=== PATIENT | female | born 1955 | race Caucasian/White ===

== ENCOUNTER → 2020-12-25 08:13 | Outpatient (BNVA) | payer OTHER, SELFPAY | PROVIDERS: PCP Internal Medicine; Visit Provider Nurse Practitioner Gerontology ==

== ENCOUNTER 2020-12-29 07:28 | Outpatient (REF) | payer OTHER, SELFPAY ==
--- NOTE | ~2020-12-29 | MM_ITS ---
EXAMINATION: MM SCREENING DIGITAL BREAST TOMOSYNTHESIS, BILATERAL CLINICAL INFORMATION: Screening. Asymptomatic. The lifetime risk of breast cancer based on the Tyrer-Cuzick Model is 8%. COMPARISON: Mammography: 08/29/2019, 07/11/2018, 06/13/2017 TECHNIQUE: Digital breast tomosynthesis is performed in both the craniocaudal and mediolateral oblique views along with computer-aided detection (CAD). Synthesized 2D images are generated from the tomosynthesis. FINDINGS: The breasts are heterogeneously dense, which may obscure small masses (ACR BI-RADS breast composition Category c). Breast tissue composition borders on extremely dense. There is inhomogeneous parenchymal pattern without significant change. No developing density or interval mass or architectural abnormality. No abnormal calcifications. The axilla and skin contours are unremarkable. MM/MM tomosynthesis screening BI IMPRESSION: No mammographic evidence of malignancy. ASSESSMENT: BI-RADS 1: Negative RECOMMENDATION: Routine annual mammography screening. This patient's information was entered into a reminder system with a target due date for their next mammogram.
[2020-12-29 09:43] LABS: Free T4 (Free Thyroxine) 1.26 ng/dL (0.71-1.85); Thyroid Stimulating Hormone 1.76 uIU/mL (0.32-4.0)
== END 2020-12-29 07:29 | disposition home or self-care (01) ==
LOC: HO.MAMMO 07:28
PROVIDERS: Absent Provider Nurse Practitioner Gerontology; PCP Internal Medicine; Visit Provider Internal Medicine
DX: Z12.31 Encounter for screening mammogram for malignant neoplasm of breast (principal); E03.9 Hypothyroidism, unspecified
CPT/HCPCS: 36415; 77063; 77067; 84439; 84443

== ENCOUNTER 2021-02-22 07:37 | Outpatient (REF) | payer OTHER, SELFPAY ==
[2021-02-22 08:04] LABS: MANUAL DIFF FLAG NO
[2021-02-22 08:08] LABS: Basophils Percent Auto 0.6 % (0-2); Eosinophils Absolute Auto 0.1 X10*3/uL (0.0-0.4); Eosinophils Percent Auto 1.9 % (0-4); Hematocrit 40.2 % (37-47); Hemoglobin 13.4 g/dl (12.0-16.0); Imm Gran Abs Auto 0.01 X10*3/uL (0.00-0.03); Imm Gran Pct Auto 0.2 % (0.0-0.4); Lymphocytes Absolute Auto 1.7 X10*3/uL (1.2-4.9); Lymphocytes Percent Auto 36.3 % (20-40); Mean Corpuscular HGB Conc 33.3 g/dl (31.0-35.0); Mean Corpuscular Hemoglobin 30.6 pg (27.0-33.0); Mean Corpuscular Volume 91.8 fL (80-98); Mean Platelet Volume 8.7 fL (9.4-12.3); Monocytes Absolute Auto 0.4 X10*3/uL (0.1-1.2); Monocytes Percent Auto 8.1 % (2-11); Neutrophils Absolute Auto 2.5 X10*3/uL (2.0-8.3); Neutrophils Percent Auto 52.9 % (45-73); Platelet Count 204 X10*3/uL (160-400); Red Blood Count 4.38 X10*6/uL (4.20-5.50); Red Cell Distribution Width 12.8 % (11.0-16.0); White Blood Count 4.7 X10*3/uL (4.8-10.8)
[2021-02-22 08:37] LABS: Alanine Aminotransferase 23 U/L (0-31); Albumin Level 4.2 g/dL (3.5-5.0); Alkaline Phosphatase 67 U/L (39-117); Anion Gap 10 (12-20); Aspartate Amino Transferase 21 U/L (5-31); Bilirubin Total 0.7 mg/dL (0.0-1.0); Blood Urea Nitrogen 10 mg/dL (9-16); Carbon Dioxide 26 mmol/L (22-29); Chloride 102 mmol/L (96-108); Cholesterol 218 mg/dL; Estimated Glomerular Filt Rate > 60; Glucose Fasting 98 mg/dL (60-99); HDL Cholesterol 79 mg/dL; LDL Cholesterol Calculated 121 mg/dl; Potassium 4.4 mmol/L (3.3-5.1); Sodium 134 mmol/L (135-145); Total Protein 6.6 g/dL (6.5-8.0); Triglycerides 94 mg/dL
[2021-02-22 08:52] LABS: Free T4 (Free Thyroxine) 1.33 ng/dL (0.71-1.85); Vitamin D 25-OH Total 35.9 ng/mL (>30)
[2021-02-22 10:03] LABS: Glucose Urine UA NEG (NEG); Leukocyte Esterase Urine NEG (NEG); Nitrite Urine NEG (NEG); Specific Gravity - Urine <= 1.005 (1.005-1.025); Urine Blood NEG (NEG); Urine Ketones NEG (NEG); Urine Protein NEG (NEG-TRACE)
[2021-02-22 10:07] LABS: Appearance Urine CLEAR; Color Urine YELLOW
== END 2021-02-22 07:38 | disposition home or self-care (01) ==
LOC: HO.LAB 07:37
PROVIDERS: PCP Internal Medicine; Visit Provider Internal Medicine
DX: E03.9 Hypothyroidism, unspecified (principal); I10 Essential (primary) hypertension; E78.00 Pure hypercholesterolemia, unspecified; E55.9 Vitamin D deficiency, unspecified
CPT/HCPCS: 36415; 80053; 80061; 81003; 82306; 84439; 84443; 85025

== ENCOUNTER 2021-08-24 08:31 | Outpatient (REF) | payer OTHER, SELFPAY ==
[2021-08-24 10:16] LABS: Alanine Aminotransferase 20 U/L (0-31); Albumin Level 4.3 g/dL (3.5-5.0); Alkaline Phosphatase 72 U/L (39-117); Anion Gap 11 (12-20); Aspartate Amino Transferase 19 U/L (5-31); Bilirubin Total 0.8 mg/dL (0.0-1.0); Blood Urea Nitrogen 14 mg/dL (9-16); Calcium 9.5 mg/dL (8.4-10.2); Carbon Dioxide 27 mmol/L (22-29); Chloride 104 mmol/L (96-108); Cholesterol 260 mg/dL; Estimated Glomerular Filt Rate > 60; Glucose Fasting 95 mg/dL (60-99); HDL Cholesterol 86 mg/dL; LDL Cholesterol Calculated 156 mg/dl; Potassium 4.5 mmol/L (3.3-5.1); Sodium 137 mmol/L (135-145); Triglycerides 92 mg/dL
== END 2021-08-24 08:32 | disposition home or self-care (01) ==
LOC: HO.LAB 08:31
PROVIDERS: PCP Internal Medicine; Visit Provider Internal Medicine
DX: E78.00 Pure hypercholesterolemia, unspecified (principal)
CPT/HCPCS: 36415; 80053; 80061

== ENCOUNTER 2021-12-16 14:59 | Outpatient (REF) | payer OTHER, SELFPAY ==
[2021-12-16 16:40] LABS: Free T4 (Free Thyroxine) 1.44 ng/dL (0.71-1.85); Thyroid Stimulating Hormone 0.22 uIU/mL (0.32-4.0)
== END 2021-12-16 15:00 | disposition home or self-care (01) ==
LOC: HO.LAB 14:59
PROVIDERS: PCP Internal Medicine; Visit Provider Nurse Practitioner Gerontology
DX: E03.9 Hypothyroidism, unspecified (principal)
CPT/HCPCS: 36415; 84439; 84443

== ENCOUNTER 2022-01-20 09:52 | Outpatient (REF) | payer OTHER, SELFPAY ==
--- NOTE | ~2022-01-20 | MM_ITS ---
EXAMINATION: MM SCREENING DIGITAL BREAST TOMOSYNTHESIS, BILATERAL CLINICAL INFORMATION: Screening. Asymptomatic. The lifetime risk of breast cancer based on the Tyrer-Cuzick Model is 10%. COMPARISON: Mammography: 12/29/2020, 08/29/2019, 07/11/2018, 06/13/2017 TECHNIQUE: Digital breast tomosynthesis is performed in both the craniocaudal and mediolateral oblique views along with computer-aided detection (CAD). Synthesized 2D images are generated from the tomosynthesis. FINDINGS: The breasts are heterogeneously dense, which may obscure small masses (ACR BI-RADS breast composition Category c). There are no significant masses, abnormal calcifications, or other abnormalities. There are scattered shifting fibroglandular parenchymal densities from year to year related to variation in positioning. No developing density or significant changes. The axilla are unremarkable. MM/MM tomosynthesis screening BI IMPRESSION: No mammographic evidence of malignancy. ASSESSMENT: BI-RADS 2: Benign RECOMMENDATION: Routine annual mammography screening. This patient's information was entered into a reminder system with a target due date for their next mammogram.
== END 2022-01-20 09:53 | disposition home or self-care (01) ==
LOC: HO.MAMMO 09:52
PROVIDERS: PCP Internal Medicine; Visit Provider Internal Medicine
DX: Z12.31 Encounter for screening mammogram for malignant neoplasm of breast (principal)
CPT/HCPCS: 77063; 77067

== ENCOUNTER 2022-03-03 07:55 | Outpatient (REF) | payer OTHER, SELFPAY ==
[2022-03-03 11:07] LABS: Free T4 (Free Thyroxine) 1.17 ng/dL (0.71-1.85); Thyroid Stimulating Hormone 1.92 uIU/mL (0.32-4.0)
== END 2022-03-03 07:56 | disposition home or self-care (01) ==
LOC: HO.WFDLDS 07:55
PROVIDERS: PCP Internal Medicine; Visit Provider Internal Medicine Endocrinology, Diabetes & Metabolism
DX: E03.9 Hypothyroidism, unspecified (principal)
CPT/HCPCS: 36415; 84439; 84443

== ENCOUNTER 2022-04-20 08:18 | Outpatient (REF) | payer OTHER, SELFPAY ==
[2022-04-20 11:09] LABS: MANUAL DIFF FLAG NO
[2022-04-20 11:15] LABS: Appearance Urine Clear; Color Urine Yellow; Glucose Urine UA Negative (Negative); Leukocyte Esterase Urine Trace (Negative); Nitrite Urine Negative (Negative); Urine Blood Negative (Negative); Urine Ketones Negative (Negative); Urine Protein Negative (Neg-Trace)
[2022-04-20 11:16] LABS: UMIC TRIGGER UACC YES
[2022-04-20 11:17] LABS: Basophils Percent Auto 0.6 % (0-2); Eosinophils Absolute Auto 0.1 X10*3/uL (0.0-0.4); Eosinophils Percent Auto 0.8 % (0-4); Hematocrit 42.5 % (37.0-47.0); Hemoglobin 13.8 g/dl (12.0-16.0); Imm Gran Abs Auto 0.02 X10*3/uL (0.00-0.03); Imm Gran Pct Auto 0.3 % (0.0-0.4); Lymphocytes Absolute Auto 1.6 X10*3/uL (1.2-4.9); Lymphocytes Percent Auto 25.5 % (20-40); Mean Corpuscular HGB Conc 32.5 g/dl (31.0-35.0); Mean Corpuscular Hemoglobin 29.7 pg (27.0-33.0); Mean Corpuscular Volume 91.4 fL (80.0-98.0); Mean Platelet Volume 9.5 fL (9.4-12.3); Monocytes Absolute Auto 0.5 X10*3/uL (0.1-1.2); Monocytes Percent Auto 7.7 % (2-11); Neutrophils Percent Auto 65.1 % (45-73); Platelet Count 231 X10*3/uL (160-400); Red Blood Count 4.65 X10*6/uL (4.20-5.50); Red Cell Distribution Width 13.1 % (11.0-16.0); White Blood Count 6.2 X10*3/uL (4.8-10.8)
[2022-04-20 11:24] LABS: Bacteria Urine None Seen (None Seen); Hyaline Casts Urine 0-2 /LPF (0-2); RBC Urine 0-2 /HPF (0-2); Squamous Epithelial Cell Urine 0-2 /HPF (0-2); WBC Urine 0-5 /HPF (0-5)
[2022-04-20 11:40] LABS: Alanine Aminotransferase 15 U/L (0-31); Albumin Level 4.4 g/dL (3.5-5.0); Alkaline Phosphatase 69 U/L (39-117); Anion Gap 15 (12-20); Aspartate Amino Transferase 18 U/L (5-31); Bilirubin Total 0.6 mg/dL (0.0-1.0); Blood Urea Nitrogen 19 mg/dL (9-16); Calcium 9.3 mg/dL (8.4-10.2); Carbon Dioxide 24 mmol/L (22-29); Chloride 100 mmol/L (96-108); Cholesterol 241 mg/dL; Estimated Glomerular Filt Rate > 60; Glucose Fasting 79 mg/dL (60-99); HDL Cholesterol 91 mg/dL; LDL Cholesterol Calculated 134 mg/dl; Potassium 4.3 mmol/L (3.3-5.1); Sodium 135 mmol/L (135-145); Total Protein 6.8 g/dL (6.5-8.0); Triglycerides 84 mg/dL
[2022-04-20 12:01] LABS: Free T4 (Free Thyroxine) 1.27 ng/dL (0.71-1.85); Thyroid Stimulating Hormone 2.21 uIU/mL (0.32-4.0); Vitamin D 25-OH Total 35.3 ng/mL (>30)
== END 2022-04-20 08:19 | disposition home or self-care (01) ==
LOC: HO.WFDLDS 08:18
PROVIDERS: Visit Provider Internal Medicine
DX: Z00.00 Encounter for general adult medical examination without abnormal findings (principal); E03.9 Hypothyroidism, unspecified; E55.9 Vitamin D deficiency, unspecified; E78.00 Pure hypercholesterolemia, unspecified
CPT/HCPCS: 36415; 80053; 80061; 81001; 82306; 84439; 84443; 85025

== ENCOUNTER 2022-09-29 08:01 | Outpatient (REF) | payer OTHER, SELFPAY ==
--- NOTE | ~2022-09-29 | MM_ITS ---
EXAMINATION: BONE DENSITOMETRY CLINICAL INDICATION: Menopause. COMPARISON: Previous BD dated 12/18/2018 and baseline BD dated 11/20/2009. TECHNIQUE: Using a [employer] DXA System (software version: 13.1) manufactured by [employer], dual-energy x-ray absorptiometry was performed of the lumbar spine and left hip. The images are of good technical quality. Summary results are attached. FINDINGS: AP SPINE L1-L4: Current: BMD 0.970 g/cm2, Z-score 0.1, T-score -1.7, osteopenia, 12.1% decrease from previous, 30.6% decrease from baseline (<5% change is not significant). Prior: BMD 1.104 g/cm2. Baseline: BMD 1.397 g/cm2. LEFT FEMUR, NECK: Current: BMD 0.694 g/cm2, Z-score -0.8, T-score -2.5, osteoporosis. Prior: BMD 0.751 g/cm2. Baseline: BMD 0.937 g/cm2. LEFT FEMUR, TOTAL: Current: BMD 0.756 g/cm2, Z-score -0.5, T-score -2.0, osteopenia, 5.5% decrease from previous, 26.9% decrease from baseline (<5% change is not significant). Prior: BMD 0.800 g/cm2. Baseline: BMD 1.034 g/cm2. IDENTIFIED RISK FACTORS: Menopause, hyperthyroid, secondary osteoporosis. HISTORY OF FRACTURE: None listed. MEDICATIONS: Calcium or multivitamin. Vitamin D. MM/XR DEXA axial skeleton IMPRESSION: 1. DIAGNOSIS: Osteoporosis based on the lowest T-score value of -2.5 in the femoral neck applying World Health Organization criteria. 2. 10-YEAR FRACTURE RISK PREDICTION, FRAX: According to the guidelines, FRAX calculation should only be performed on patients in the osteopenia bone density category. Therefore, FRAX was not performed on this patient. 3. Treatment Recommendations: NOF guidelines recommend consideration for treatment in postmenopausal women and men age 50 and older presenting with the following: -A hip or vertebral (clinical or morphometric) fracture. -T-score less than or equal to -2.5 at the femoral neck or spine after appropriate evaluation to exclude secondary causes. -Low bone mass at the hip or spine and a 10-year fracture probability by FRAX of greater than or equal to 3% for hip fracture or greater than or equal to 20% for major osteoporotic fracture based on the [place] adapted WHO algorithm. 4. Other Recommendations: All treatment decisions require clinical judgment and consideration of individual patient factors, including patient preferences, comorbidities, previous drug use, risk factors not captured in the FRAX model (e.g. frailty, falls, vitamin D deficiency, increased bone turnover, interval significant decline in bone density) and possible under or overestimation of fracture risk by FRAX. Additional medical evaluation for secondary cause of low bone mineral density may be appropriate. FUTURE SCAN RECOMMENDATION: People with diagnosed cases of osteoporosis or at high risk for fracture should have regular bone mineral density tests. For patients eligible for Medicare, routine testing is allowed once every 2 years. The testing frequency can be increased to one year for patients who have rapidly progressing disease, those who are receiving or discontinuing medical therapy to restore bone mass, or have additional risk factors.
== END 2022-09-29 08:02 | disposition home or self-care (01) ==
LOC: HO.MAMMO 08:01
PROVIDERS: PCP Internal Medicine; Visit Provider Internal Medicine
DX: Z13.820 Encounter for screening for osteoporosis (principal); M85.80 Other specified disorders of bone density and structure, unspecified site; Z78.0 Asymptomatic menopausal state
CPT/HCPCS: 77080

== ENCOUNTER 2022-10-17 07:17 | Outpatient (REF) | payer OTHER, SELFPAY ==
[2022-10-17 11:24] LABS: MANUAL DIFF FLAG NO
[2022-10-17 11:49] LABS: Appearance Urine Clear; Color Urine Yellow; Glucose Urine UA Negative (Negative); Leukocyte Esterase Urine Small (1+) (Negative); Nitrite Urine Negative (Negative); PH 5.5 (5.0-9.0); UMIC TRIGGER UACC YES; Urine Blood Negative (Negative); Urine Ketones Negative (Negative); Urine Protein Negative (Neg-Trace)
[2022-10-17 11:52] LABS: Basophils Percent Auto 0.8 % (0-2); Eosinophils Absolute Auto 0.1 X10*3/uL (0.0-0.4); Eosinophils Percent Auto 2.6 % (0-4); Hematocrit 40.8 % (37.0-47.0); Hemoglobin 13.4 g/dl (12.0-16.0); Imm Gran Abs Auto 0.01 X10*3/uL (0.00-0.03); Imm Gran Pct Auto 0.2 % (0.0-0.4); Lymphocytes Absolute Auto 1.6 X10*3/uL (1.2-4.9); Lymphocytes Percent Auto 32.2 % (20-40); Mean Corpuscular HGB Conc 32.8 g/dl (31.0-35.0); Mean Corpuscular Hemoglobin 30.1 pg (27.0-33.0); Mean Corpuscular Volume 91.7 fL (80.0-98.0); Monocytes Absolute Auto 0.5 X10*3/uL (0.1-1.2); Neutrophils Absolute Auto 2.8 x10*3/uL (2.0-8.3); Neutrophils Percent Auto 55.2 % (45-73); Platelet Count 209 X10*3/uL (160-400); Red Blood Count 4.45 X10*6/uL (4.20-5.50); White Blood Count 5.1 X10*3/uL (4.8-10.8)
[2022-10-17 12:06] LABS: Bacteria Urine None Seen (None Seen); Hyaline Casts Urine 0-2 /LPF (0-2); RBC Urine 0-2 /HPF (0-2); Squamous Epithelial Cell Urine 0-2 /HPF (0-2); UACC Culture Trigger YES; WBC Urine 0-5 /HPF (0-5)
[2022-10-17 12:30] LABS: Alanine Aminotransferase 14 U/L (0-31); Alkaline Phosphatase 64 U/L (39-117); Anion Gap 9 (12-20); Aspartate Amino Transferase 16 U/L (5-31); Bilirubin Total 0.8 mg/dL (0.0-1.0); Blood Urea Nitrogen 15 mg/dL (9-16); Calcium 8.9 mg/dL (8.4-10.2); Carbon Dioxide 28 mmol/L (22-29); Chloride 104 mmol/L (96-108); Cholesterol 237 mg/dL; Estimated Glomerular Filt Rate > 60; Glucose Fasting 88 mg/dL (60-99); HDL Cholesterol 80 mg/dL; LDL Cholesterol Calculated 143 mg/dl; Sodium 137 mmol/L (135-145); Total Protein 6.2 g/dL (6.5-8.0); Triglycerides 74 mg/dL
[2022-10-17 12:32] LABS: Thyroid Stimulating Hormone 7.89 uIU/mL (0.32-4.0); Vitamin D 25-OH Total 33.7 ng/mL (>30)
== END 2022-10-17 07:18 | disposition home or self-care (01) ==
LOC: HO.WFDLDS 07:17
PROVIDERS: Visit Provider Internal Medicine
DX: E78.00 Pure hypercholesterolemia, unspecified (principal); E55.9 Vitamin D deficiency, unspecified; E03.9 Hypothyroidism, unspecified; I10 Essential (primary) hypertension; R82.90 Unspecified abnormal findings in urine
CPT/HCPCS: 36415; 80053; 80061; 81001; 82306; 84439; 84443; 85025; 87086

== ENCOUNTER → 2022-11-23 15:48 | Outpatient (BNVA) | payer OTHER, SELFPAY | PROVIDERS: PCP Internal Medicine; Visit Provider Internal Medicine Endocrinology, Diabetes & Metabolism ==

== ENCOUNTER 2023-02-10 08:03 | Outpatient (REF) | payer OTHER, SELFPAY ==
--- NOTE | ~2023-02-10 | MM_ITS ---
EXAMINATION: MM SCREENING DIGITAL BREAST TOMOSYNTHESIS, BILATERAL CLINICAL INFORMATION: Screening. Asymptomatic. The lifetime risk of breast cancer based on the Tyrer-Cuzick Model is 9.1%. COMPARISON: Mammography: This study is compared with prior exams dating back to 2018. TECHNIQUE: Digital breast tomosynthesis is performed in both the craniocaudal and mediolateral oblique views along with computer-aided detection (CAD). Synthesized 2D images are generated from the tomosynthesis. FINDINGS: The breasts are heterogeneously dense, which may obscure small masses (ACR BI-RADS breast composition Category c). There are no significant masses, abnormal calcifications, or other abnormalities. MM/MM tomosynthesis screening BI IMPRESSION: No mammographic evidence of malignancy. ASSESSMENT: BI-RADS BI-RADS 1 - Negative RECOMMENDATION: Routine annual mammography screening. 1 year F/U This examination should not preclude the clinical evaluation of a suspicious palpable abnormality. This patient's information was entered into a reminder system with a target due date for their next mammogram.
== END 2023-02-10 08:04 | disposition home or self-care (01) ==
LOC: HO.MAMMO 08:03
PROVIDERS: PCP Internal Medicine; Visit Provider Internal Medicine
DX: Z12.31 Encounter for screening mammogram for malignant neoplasm of breast (principal)
CPT/HCPCS: 77063; 77067

== ENCOUNTER → 2023-02-10 08:15 | Outpatient (BNV) | payer OTHER, SELFPAY | PROVIDERS: PCP Internal Medicine; Visit Provider Radiology Diagnostic Radiology | DX: Z12.31 Encounter for screening mammogram for malignant neoplasm of breast (principal) | CPT/HCPCS: 77063; 77067 ==

== ENCOUNTER 2023-03-28 08:19 | Outpatient (REF) | payer OTHER, SELFPAY | END 2023-03-28 08:20 | disposition home or self-care (01) | LOC: HO.WFDLDS 08:19 | PROVIDERS: Visit Provider Internal Medicine Endocrinology, Diabetes & Metabolism | DX: M81.0 Age-related osteoporosis without current pathological fracture (principal) | CPT/HCPCS: 86335 ==

== ENCOUNTER 2023-03-30 07:50 | Outpatient (REF) | payer OTHER, SELFPAY ==
[2023-03-30 12:21] LABS: Phosphorus 3.3 mg/dL (2.7-4.5)
[2023-03-30 15:55] LABS: Creatinine, mg/dL 47.22
[2023-03-30 16:28] LABS: Creatinine, 24Hr Urine 0.9 G/Day (1.0-2.0); Total Volume 24 Hour Urine 1900 mL
[2023-04-01 22:29] LABS: Calcium, 24 Hr Urine 163 mg/24 h; Calcium/Creatinine Ratio 179 mg/g creat (30-275); Creatinine 24Hr Urine 0.91 g/24 h (0.50-2.15)
[2023-04-03 11:59] LABS: Prot Elec - Albumin 4.3 g/dL (3.8-4.8); Prot Elec - Alpha1 0.3 g/dL (0.2-0.3); Prot Elec - Alpha2 0.7 g/dL (0.5-0.9); Prot Elec - Beta 1 0.4 g/dL (0.4-0.6); Prot Elec - Beta 2 0.3 g/dL (0.2-0.5); Prot Elec - Gamma 0.9 g/dL (0.8-1.7)
== END 2023-03-30 07:51 | disposition home or self-care (01) ==
LOC: HO.WFDLDS 07:50
PROVIDERS: Visit Provider Internal Medicine Endocrinology, Diabetes & Metabolism
DX: M81.0 Age-related osteoporosis without current pathological fracture (principal)
CPT/HCPCS: 36415; 82340; 82570; 84100; 84165

== ENCOUNTER 2023-04-04 08:06 | Outpatient (AMB) | payer OTHER, SELFPAY ==
[2023-04-04 08:07] VITALS: BP 126/78; PULSE 80; BMI 22.9
--- NOTE | 2023-04-04 08:07 | MHC.OFFVIS ---
Intake Vital Signs 04/04/23 08:07 Height 5 ft 5 in Weight 137 lb 9.095 oz BMI 22.9 BP 126/78 Blood Pressure Location Lt brachial Position Sitting Pulse 80 Pulse Source Pulse Oximeter Intake Visit Reasons: Osteoporosis/ Confirmed Intake Note: Patient present for Osteoporosis follow up visit. [facility] Required: No Accompanied by: Self / Same As Patient Allergies sulfamethoxazole [From Bactrim] Allergy (Intermediate, Verified 04/04/23 08:14) Itching trimethoprim [From Bactrim] Allergy (Intermediate, Verified 04/04/23 08:14) Itching pitavastatin [Livalo] Allergy (Unknown, Verified 04/04/23 08:14) Unknown Sulfa (Sulfonamide Antibiotics) Allergy (Unknown, Verified 04/04/23 08:14) hives atorvastatin [Lipitor] Adverse Reaction (Unknown, Verified 04/04/23 08:14) myalgia,weakness ezetimibe [Zetia] Adverse Reaction (Unknown, Verified 04/04/23 08:14) myalgia, weakness rosuvastatin [Crestor] Adverse Reaction (Unknown, Verified 04/04/23 08:14) myalgia, weakness simvastatin Adverse Reaction (Unknown, Verified 04/04/23 08:14) myalgia, weakness Medication List - Last Reconciled 04/04/23 by Elie Hassan MD ascorbate calcium (vitamin C) 500 mg PO DAILY cholecalciferol (vitamin D3) 25 mcg PO DAILY coenzyme Q10 (CoQ-10) 100 mg PO DAILY levothyroxine 88 mcg PO DAILY multivitamin (Daily Multi-Vitamin tablet) 1 tab PO DAILY HPI HPI Comments History of Present Illness Details 67 YO Female is seen in consultation at the request of PCP for Osteoporosis. First diagnosed in this yr . Not Received treatment in the past No history of pathologic fracture or ONJ. Has several servings of dietary calcium per day in the form of cheese, yogurt . not Takes Calcium supplemen Takes 1000 IU of Vitamin D daily. Denies ever using PPI, anticoagulant, antiepileptic or glucocorticoid medication. 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 UTD on dental cleanings and sees dentist every 6 months. No planned upcoming dental work or extractions. DXA dated 09/29/22 :EXAMINATION: BONE DENSITOMETRY CLINICAL INDICATION: Menopause. COMPARISON: Previous BD dated 12/18/2018 and baseline BD dated 11/20/2009. TECHNIQUE: Using a [employer] DXA System (software version: 13.1) manufactured by [employer], dual-energy x-ray absorptiometry was performed of the lumbar spine and left hip. The images are of good technical quality. Summary results are attached. FINDINGS: AP SPINE L1-L4: Current: BMD 0.970 g/cm2, Z-score 0.1, T-score -1.7, osteopenia, 12.1% decrease from previous, 30.6% decrease from baseline (<5% change is not significant). Prior: BMD 1.104 g/cm2. Baseline: BMD 1.397 g/cm2. LEFT FEMUR, NECK: Current: BMD 0.694 g/cm2, Z-score -0.8, T-score -2.5, osteoporosis. Prior: BMD 0.751 g/cm2. Baseline: BMD 0.937 g/cm2. LEFT FEMUR, TOTAL: Current: BMD 0.756 g/cm2, Z-score -0.5, T-score -2.0, osteopenia, 5.5% decrease from previous, 26.9% decrease from baseline (<5% change is not significant). Prior: BMD 0.800 g/cm2. Baseline: BMD 1.034 g/cm2. IDENTIFIED RISK FACTORS: Menopause, hyperthyroid, secondary osteoporosis. HISTORY OF FRACTURE: None listed. MEDICATIONS: Calcium or multivitamin. Vitamin D. MM/XR DEXA axial skeleton IMPRESSION: 1. DIAGNOSIS: Osteoporosis based on the lowest T-score value of -2.5 in the femoral neck applying World Health Organization criteria.? Labs: Secondary workup was negative [facility] Medical History Acquired hypothyroidism Lumbar degenerative disc disease Osteoporosis Pure hypercholesterolemia Surgical History History of lumbar surgery Family History Father GI problem Mother Hypothyroid Maternal Aunt Breast cancer Maternal Grandmother No problems noted. Maternal Grandfather No problems noted. Paternal Grandmother No problems noted. Paternal Grandfather No problems noted. 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 Cognitive needs: No Hearing needs: No Vision needs: Yes (reading glasses) Physical Exam Vital Signs: Last Vital Signs Pulse 80 04/04/23 08:07 BP 126/78 04/04/23 08:07 BMI result Body Mass Index 22.9 Assessment & Plan Assessment & Plan (1) Osteoporosis: Code(s): M81.0 - Age-related osteoporosis without current pathological fracture Qualifiers: Osteoporosis type: age-related Presence of current pathological fracture: without current pathological fracture Qualified Code(s): M81.0 - Age-related osteoporosis without current pathological fracture Plan: This 67-year-old white female with a history of osteoporosis. Secondary workup was negative The plan is to continue calcium and vitamin-D supplementation. We talked about pharmacologic therapy with alendronate patient wants to hold off on pharmacologic therapy at this point. She returned to the care of her primary care provider will recheck a bone density either here at [facility] or at [facility] and if bone density significantly decreases, either her primary care provider can start the alendronate was should return back to endocrinology Coding Level of Care Code Est Pt Level 3 (60660) Diagnoses Age-related osteoporosis without current pathological fracture M81.0 Osteoporosis type: age-related Presence of current pathological fracture: without current pathological fracture
== END 2023-04-04 08:35 | disposition home or self-care (01) ==
PROVIDERS: PCP Internal Medicine; Visit Provider Internal Medicine Endocrinology, Diabetes & Metabolism
DX: M81.0 Age-related osteoporosis without current pathological fracture (principal)
CPT/HCPCS: 99213

== ENCOUNTER → 2023-04-04 08:06 | Outpatient (BNVA) | payer OTHER, SELFPAY | PROVIDERS: Visit Provider Internal Medicine Endocrinology, Diabetes & Metabolism ==

== ENCOUNTER 2023-04-28 07:32 | Outpatient (REF) | payer OTHER, SELFPAY ==
[2023-04-28 11:38] LABS: MANUAL DIFF FLAG NO
[2023-04-28 11:49] LABS: Appearance Urine Clear; Color Urine Yellow; Glucose Urine UA Negative (Negative); Leukocyte Esterase Urine Small (1+) (Negative); Nitrite Urine Negative (Negative); UMIC TRIGGER UACC YES; Urine Blood Negative (Negative); Urine Ketones Negative (Negative); Urine Protein Negative (Neg-Trace)
[2023-04-28 12:02] LABS: Bacteria Urine None Seen (None Seen); Hyaline Casts Urine 0-2 /LPF (0-2); RBC Urine 0-2 /HPF (0-2); UACC Culture Trigger YES
[2023-04-28 12:06] LABS: Basophils Absolute Auto 0.1 X10*3/uL (0.0-0.2); Basophils Percent Auto 0.8 % (0-2); Eosinophils Absolute Auto 0.1 X10*3/uL (0.0-0.4); Eosinophils Percent Auto 1.5 % (0-4); Hematocrit 41.5 % (37.0-47.0); Hemoglobin 13.8 g/dl (12.0-16.0); Imm Gran Abs Auto 0.02 X10*3/uL (0.00-0.03); Imm Gran Pct Auto 0.3 % (0.0-0.4); Lymphocytes Absolute Auto 1.4 X10*3/uL (1.2-4.9); Lymphocytes Percent Auto 22.3 % (20-40); Mean Corpuscular HGB Conc 33.3 g/dl (31.0-35.0); Mean Corpuscular Hemoglobin 29.2 pg (27.0-33.0); Mean Corpuscular Volume 87.9 fL (80.0-98.0); Mean Platelet Volume 9.2 fL (9.4-12.3); Monocytes Absolute Auto 0.6 X10*3/uL (0.1-1.2); Neutrophils Absolute Auto 4.3 x10*3/uL (2.0-8.3); Neutrophils Percent Auto 66.1 % (45-73); Platelet Count 287 X10*3/uL (160-400); Red Blood Count 4.72 X10*6/uL (4.20-5.50); Red Cell Distribution Width 13.4 % (11.0-16.0); White Blood Count 6.5 X10*3/uL (4.8-10.8)
[2023-04-28 13:10] LABS: Alanine Aminotransferase 11 U/L (0-31); Albumin Level 4.1 g/dL (3.5-5.0); Alkaline Phosphatase 78 U/L (39-117); Anion Gap 13 (12-20); Aspartate Amino Transferase 15 U/L (5-31); Bilirubin Total 0.5 mg/dL (0.0-1.0); Blood Urea Nitrogen 15 mg/dL (9-16); Calcium 9.8 mg/dL (8.4-10.2); Carbon Dioxide 24 mmol/L (22-29); Chloride 103 mmol/L (96-108); Cholesterol 240 mg/dL (<200); Estimated Glomerular Filt Rate > 60; Free T4 (Free Thyroxine) 1.19 ng/dL (0.71-1.85); Glucose Fasting 93 mg/dL (60-99); HDL Cholesterol 72 mg/dL (>40); LDL Cholesterol Calculated 153 mg/dL (<100); Potassium 4.2 mmol/L (3.3-5.1); Sodium 136 mmol/L (135-145); Thyroid Stimulating Hormone 4.64 uIU/mL (0.32-4.0); Total Protein 7.1 g/dL (6.5-8.0); Triglycerides 75 mg/dL (<150); Vitamin D 25-OH Total 49.6 ng/mL (>30)
== END 2023-04-28 07:33 | disposition home or self-care (01) ==
LOC: HO.WFDLDS 07:32
PROVIDERS: Visit Provider Internal Medicine
DX: E03.9 Hypothyroidism, unspecified (principal); E55.9 Vitamin D deficiency, unspecified; E78.00 Pure hypercholesterolemia, unspecified; I10 Essential (primary) hypertension; R82.90 Unspecified abnormal findings in urine
CPT/HCPCS: 36415; 80053; 80061; 81001; 82306; 84439; 84443; 85025; 87086

== ENCOUNTER 2023-05-05 08:53 | Outpatient (AMB) | payer OTHER, SELFPAY ==
[2023-05-05 09:01] VITALS: BP 116/80; PULSE 77; O2SAT 99; BMI 22.7
--- NOTE | 2023-05-05 09:01 | MHC.PC.OV ---
Vital Signs 05/05/23 09:01 Height 5 ft 5 in Weight 136 lb 8 oz BMI 22.7 BP 116/80 Blood Pressure Location Lt brachial Position Sitting Pulse 77 Pulse Source Pulse Oximeter Pulse Oximetry (%) 99 Oxygen Delivery Method Room Air Intake Visit Reasons: PE Transitional Care Manager Required: No Accompanied by: Self / Same As Patient Allergies sulfamethoxazole [From Bactrim] Allergy (Intermediate, Verified 05/05/23 09:15) Itching trimethoprim [From Bactrim] Allergy (Intermediate, Verified 05/05/23 09:15) Itching pitavastatin [Livalo] Allergy (Unknown, Verified 05/05/23 09:15) Unknown Sulfa (Sulfonamide Antibiotics) Allergy (Unknown, Verified 05/05/23 09:15) hives atorvastatin [Lipitor] Adverse Reaction (Unknown, Verified 05/05/23 09:15) myalgia,weakness ezetimibe [Zetia] Adverse Reaction (Unknown, Verified 05/05/23 09:15) myalgia, weakness rosuvastatin [Crestor] Adverse Reaction (Unknown, Verified 05/05/23 09:15) myalgia, weakness simvastatin Adverse Reaction (Unknown, Verified 05/05/23 09:15) myalgia, weakness Medication List - Last Reconciled 05/05/23 by Seven Jansen MD ascorbate calcium (vitamin C) 500 mg PO DAILY cholecalciferol (vitamin D3) 25 mcg PO DAILY coenzyme Q10 (CoQ-10) 100 mg PO DAILY levothyroxine 88 mcg PO DAILY multivitamin (Daily Multi-Vitamin tablet) 1 tab PO DAILY Tobacco use date assessed: 05/05/23 Fall risk assessment: No Falls in past year Last assessed Fall Risk: 05/05/23 Dental Screening Dental Screen Date: 05/05/23 Did you have a dental visit in the last 12 months?: Yes Did you have a dental problem in the last 6 months where you did not have access to dental care?: No Was dental information given to patient?: Patient has dentist [facility] HPI Details Patient comes in today for her annual physical examination States that she stopped taking her Colesevelam about 3 to 4 months ago because of increasing myalgia and some muscle weakness States that her symptoms have been slowly getting better since but she still has some lingering and recurrent symptoms that have not yet completely cleared up States that she feels okay otherwise She denies any headaches or dizziness Denies any chest pains, no SOB No nausea/vomiting, no abdominal pain No change in bowel habits noted Denies any acute urinary symptoms Had her follow up labs done last week - to discuss her results Notes that her repeat colonoscopy is now scheduled for 05/29/[address] Aguilar Had her annual mammogram last done in 01/2023 BMD was last done in 09/2022 - (+) osteoporosis - she has been referred to and is now seeing Dr. 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 Maternal Grandfather No problems noted. Paternal Grandmother No problems noted. Paternal Grandfather No problems noted. 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 1. Little interest or pleasure in doing things: not at all 2. Feeling down, depressed, or hopeless: not at all 3. Trouble falling or staying asleep, or sleeping too much: not at all 4. Feeling tired or having little energy: not at all 5. Poor appetite or overeating: not at all 6. Feeling bad about yourself - or that you are a failure or have let yourself or your family down: not at all 7. Trouble concentrating on things, such as reading the newspaper or watching television: not at all 8. Moving or speaking so slowly that other people could have noticed. Or the opposite - being so fidgety or restless that you have been moving around a lot more than usual: not at all 9. Thoughts that you would be better off or of hurting yourself in some way: not at all Total score: 0 Depression Screening Interpretation: Negative Depression Screening Done: Yes 47039 - PHQ-9 Billing: Yes Source: Developed by Drs. Elie Lowe, Elizabeth Will, Terry Telles and colleagues, with an educational maria g from [employer]. Thrive Questionnaire Date Thrive assessed: 05/05/23 I am a: Patient What is your living situation today?: I have a steady place to live Within the past 12 months, did the food you bought not last and you didn't have the money to get more?: Never true Within the past 12 months, did you worry whether your food would run out before you got money to buy more?: Never true Do you have trouble paying for medicines?: No Do you have trouble getting transportation to medical appointments?: No Do you have trouble paying your heating and electricity bill?: No Do you have trouble taking care of your child, family member or friend?: No Do you have trouble with day-to-day activities such as bathing, preparing meals, shopping, managing finances, etc.?: No Are you currently unemployed and looking for a job?: No Are you interested in more education?: No Please select the resources that you would like help with: None Currently or been in a relationship where the following occur: no concerns reported AUDIT C Alcohol Use Questionnaire (AUDIT-C) 1. How often do you have a drink containing alcohol?: Monthly or less 2. How many drinks containing alcohol do you have on a typical day when you are drinking?: 1 or 2 3. How often do you have six or more drinks on one occasion?: Never Total Score: 1 Score Reviewed/Action Taken: Yes JUSTA-7 AMB Questionnaire JUSTA-7 Date JUSTA - 7 assessed: 05/05/23 Feeling nervous, anxious, or on edge: 0 = Not at all Not being able to stop or control worryin = Not at all Worrying too much about different things: 0 = Not at all Trouble relaxin = Not at all Being so restless that it is hard to sit still: 0 = Not at all Becoming easily annoyed or irritable: 0 = Not at all Feeling afraid as if something awful might happen: 0 = Not at all Total JUSTA-7 score (0-4 normal; 5-9 mild; 10-14 moderate; 15-21 severe): 0 Source: Developed by Drs. Elie Lowe, Elizabeth Will, Terry Telles and colleagues, with an educational maria g from [employer]. Review of Systems Const Denies chills, Reports fatigue, Denies fever(s), Denies headache(s) and Denies malaise Eyes Denies blurry vision, Denies change in vision, Denies irritation and Denies itchy eyes ENT Denies dysphagia, Denies dizziness, Denies otalgia, Denies headache(s), Denies nasal congestion, Denies neck pain, Denies odynophagia, Denies sinus pain and Denies sore throat Card Denies chest pain, Denies rapid heart rate, Denies irregular heart rhythm, Denies palpitations and Denies dyspnea Resp Denies chest congestion, Denies cough, Denies dyspnea and Denies wheezing GI Denies abdominal pain, Denies bloating, Denies constipation, Denies dysphagia, Denies heartburn, Denies diarrhea, Denies nausea, Denies odynophagia and Denies vomiting Denies hematuria, Denies urinary frequency, Denies dysuria, Denies urinary incontinence and Denies urinary urgency Musc Denies back pain, Reports myalgias (on and off muscle aches and pain), Reports arthralgias (on and off, involving multiple joints,including her knees,shoulders,wrists), Denies joint swelling, Reports muscle weakness (occasionally) and Denies neck pain Skin/Breast Denies breast pain, Denies breast mass, Denies change in pigmentation, Denies lesions, Denies rash and Denies unusual bruising Neuro Denies dizziness, Denies headache(s) and Denies paresthesias Psych Denies anxiety and Denies depression Endo Reports fatigue and Denies palpitations Tay/Lymph Denies easy bruising Aller/Immun Denies itchy eyes and Denies wheezing Physical exam (Primary Care) Vital Signs: Last Vital Signs Pulse 77 05/05/23 09:01 BP 116/80 05/05/23 09:01 Pulse Ox 99 05/05/23 09:01 Oxygen Delivery Method Room Air 05/05/23 09:01 BMI result Body Mass Index 22.7 Tobacco/Smoking Status: Tobacco use Status Tobacco use date assessed 05/05/23 05/05/23 09:05 Patient Tobacco Use Status Never used Tobacco 05/05/23 09:05 e-Cigarette/Vaping Use Never Used 05/05/23 09:05 PHQ-9: PHQ-9 Score PHQ-9: Total score 0 05/05/23 09:13 Depression Screening Interpretation: Negative Thrive Assessment: Date of Thrive Assessment Date Thrive assessed 05/05/23 05/05/23 09:05 Currently or been in a relationship where the following occur: no concerns reported Const General: no acute distress, alert and awake Orientation/consciousness: patient oriented x3 HENMT Head: Yes normocephalic and Yes atraumatic Ears: external ears normal, TM's normal bilaterally and EAC's normal General nose exam: No nasal discharge present Face and sinus: Yes normal facial exam and Yes sinuses nontender Teeth and gingiva: dentition normal Throat: Yes posterior oropharynx normal and Yes tonsils normal (no TP congestion) Eyes Eyelids: Yes eyelids normal Conjunctivae: conjunctivae normal Pupils: Equal, round and reactive pupils present EOM: EOMs intact bilaterally Neck Neck: Yes no lymphadenopathy and Yes supple Thyroid: Thyroid normal Resp Auscultation: clear to auscultation bilaterally, no rales and no wheezes Cardio Rate: regular rate Rhythm: regular rhythm Heart sounds: no murmurs GI Palpation (GI): Soft to palpation, nontender and No hepatosplenomegaly present Auscultation: normal bowel sounds General: Yes no CVA tenderness Back/Spine/Pelvis Back: no CVA tenderness Thoracic/Lumbar Spine: thoracic and lumbar spine normal to inspection Skin Lesions: no lesions Rashes: no rashes Neuro General: patient oriented x3, moves all extremities, no focal motor deficits and CN's II-XI intact bilaterally Cranial nerves: Yes Equal, round and reactive pupils present Cognition (Neuro): normal cognition Gait exam (Neuro): Normal gait present Extrem General: Yes no clubbing, cyanosis or edema Office Procedures Flu Questionnaire Does the patient have a severe egg allergy?: No Does the patient have severe life threatening allergies?: No Does the patient have a fever or illness today?: No Has the patient ever had Guillain-[place] Syndrome?: No Has the patient ever had any past reaction to a flu shot?: No Immunizations flu vacc [id number] 6mos up(PF) 60 mcg(15 mcgx4)/0.5 mL IM syringe Performing Provider: Seven Jasnen MD [facility] Administered by: Eva Christianson on 05/05/23 09:13 Dose Route Admin Location Dispensed Lot Number Expiration Date NDC Javascript Web Developer 0.5 mL IM Right Deltoid 0.5 mL [id number] 01/14/24 39919-702-09 [employer] Kids VIS Given Date VIS Provided VIS Publication Date 05/05/23 Single Vaccine 21 Eligibility Eligibility Date Funding Source Not [facility] Eligible 05/05/23 Private Results Reviewed Results Reviewed: Laboratory Tests 04/28/23 07:37 WBC 6.5 Hgb 13.8 Hct 41.5 Plt Count 287 D Sodium 136 Potassium 4.2 Creatinine 0.73 Estimated GFR > 60 Fasting Glucose 93 Calcium 9.8 D AST 15 ALT 11 Triglycerides 75 Cholesterol 240 H LDL Cholesterol, Calc 153 H HDL Cholesterol 72 25-OH Vitamin D Total 49.6 TSH 4.64 H Free T4 1.19 Urine pH 7.0 Ur Specific [place] 1.010 Urine Protein Negative Urine Glucose (UA) Negative Urine Blood Negative Assessment and Plan Assessment & Plan (1) Annual physical exam: Code(s): Z00.00 - Encounter for general adult medical examination without abnormal findings Plan: Results of her labs done last week reviewed and discussed with patient (2) Pure hypercholesterolemia: Code(s): E78.00 - Pure hypercholesterolemia, unspecified Plan: Advised that her cholesterol levels, especially her LDL cholesterol, remain significantly elevated Reinforced low cholesterol diet Was on Colesevelam 3.75 gm QD for a few years but stopped taking them a few months ago due to increasing muscle aches and pain She is still experiencing recurrent myalgias and some arthralgias - advised that if her symptoms are due to her Rx, they should be mostly resolved or cleared up by now as she has been off the medication for a few months Discussed about the possibility that her symptoms may not be due to her Rx and may be more of musculoskeletal in nature - possibilities include arthritis, tendinitis or other issues She would like to stay off Colesevelam for now and not take any other Rx for cholesterol at this time Have encouraged her to at least start eating plain oatmeal every day - morning for breakfast 7 days a week for the next few months, in addition to adhering to a low cholesterol diet as best as she can, and we will see if this will help lower her cholesterol levels over the next few months If not, advised that we will then have to try to look for other Rx, including considering the newer PCSK9 inhibitors, to try to help lower her cholesterol levels Will recheck her labs and fasting lipids in 6 months for follow up (3) Acquired hypothyroidism: Code(s): E03.9 - Hypothyroidism, unspecified Plan: TSH was still slightly elevated (but has improved from previous); her Free T4 level remains normal on her recent labs; patient presently also remains clinically euthyroid without any acute symptoms Continue Levothyroxine 88 mcg QD for now Will continue to monitor her TFTs regularly Was last seen by Dr. Hassan last year and was advised to just continue seeing her PCP regularly and to see them (endocrinology) only as needed for her thyroid issues (4) Osteoporosis: Code(s): M81.0 - Age-related osteoporosis without current pathological fracture Qualifiers: Osteoporosis type: age-related Presence of current pathological fracture: without current pathological fracture Qualified Code(s): M81.0 - Age-related osteoporosis without current pathological fracture Plan: BMD done in 12/2018 showed (+) osteopenia but her repeat BMD done in September 2022 revealed (+) osteoporosis based on the lowest T-score value of -2.5 in the femoral neck applying the WHO criteria Her current BMD in the AP spine has declined 12.1% from previous; BMD in the left femur showed a 5.5% decrease from previous She is encouraged to continue her daily oral calcium and Vitamin D supplements and to exercise regularly and stay active but reinforced fall precautions She was also recommended to start on Rx for her osteoporosis but she prefers NOT to and would like to get her BMD repeated in 2 years to see where she will be at the time She is now following up with Dr. Hassan for her osteoporosis (5) Lumbar degenerative disc disease: Code(s): M51.36 - Other intervertebral disc degeneration, lumbar region Plan: Reinforced activity and weight-lifting restrictions to help minimize her low back pain (6) Muscle weakness (generalized): Code(s): M62.81 - Muscle weakness (generalized) Plan: Will send her for some additional labs today to further evaluate her lingering myalgias as well as her recent increasing muscle weakness/symptoms Plan Flu vaccine given today, per request Follow up in 6 months Orders: Orders Influenza [id number] Immunization Today Z23 - Encounter for immunization Comprehensive [place]. Panel Fast 6 Months E78.00 - Pure hypercholesterolemia, unspecified Thyroid Stimulating Hormone 6 Months E03.9 - Hypothyroidism, unspecified Free T4 (Free Thyroxine) 6 Months E03.9 - Hypothyroidism, unspecified Vitamin D 25-OH Total 6 Months E55.9 - Vitamin D deficiency, unspecified UA CC w/rflx Micro + Cult 6 Months R30.0 - Dysuria C Reactive Protein Today M62.81 - Muscle weakness (generalized), M79.10 - Myalgia, unspecified site Rheumatoid Factor Today M62.81 - Muscle weakness (generalized), M79.10 - Myalgia, unspecified site Lyme IgG/IgM w/reflex to WB Today M62.81 - Muscle weakness (generalized), M79.10 - Myalgia, unspecified site Complete Blood Count Auto Diff 6 Months I10 - Essential (primary) hypertension Lipid Panel 6 Months E78.00 - Pure hypercholesterolemia, unspecified Erythrocyte Sedimentation Rate Today M62.81 - Muscle weakness (generalized), M79.10 - Myalgia, unspecified site, M79.7 - Fibromyalgia PRECIOUS Reflex Titer and Pattern Today M62.81 - Muscle weakness (generalized), M79.10 - Myalgia, unspecified site CK, Total+Isoenzymes, Serum Today M62.81 - Muscle weakness (generalized), M79.10 - Myalgia, unspecified site Vitamin B12 and Folate Today E53.8 - Deficiency of other specified B group vitamins, M62.81 - Muscle weakness (generalized), M79.10 - Myalgia, unspecified site Magnesium Today E83.42 - Hypomagnesemia, M62.81 - Muscle weakness (generalized), M79.10 - Myalgia, unspecified site Coding Level of Care Code Est Pt Prev Care >65y(86663) Diagnoses Annual physical exam Z00.00 Pure hypercholesterolemia E78.00 Acquired hypothyroidism E03.9 Age-related osteoporosis without current pathological fracture M81.0 Osteoporosis type: age-related Presence of current pathological fracture: without current pathological fracture Lumbar degenerative disc disease M51.36 Muscle weakness (generalized) M62.81
== END 2023-05-05 09:51 | disposition home or self-care (01) ==
PROVIDERS: Visit Provider Internal Medicine
DX: Z00.00 Encounter for general adult medical examination without abnormal findings (principal); E78.00 Pure hypercholesterolemia, unspecified; E03.9 Hypothyroidism, unspecified; Z23 Encounter for immunization; M81.0 Age-related osteoporosis without current pathological fracture; M51.36 Other intervertebral disc degeneration, lumbar region; M62.81 Muscle weakness (generalized)
CPT/HCPCS: 90471; 90686; 99397

== ENCOUNTER 2023-05-05 09:56 | Outpatient (REF) | payer OTHER, SELFPAY ==
[2023-05-05 10:59] LABS: C Reactive Protein 0.22 mg/dL (< or = 0.50); Magnesium 2.2 mg/dL (1.6-2.6)
[2023-05-05 11:17] LABS: Rheumatoid Factor < 13.0 IU/mL (<15.0)
[2023-05-05 11:20] LABS: Erythrocyte Sedimentation Rate 13 MM/HR (0-20)
[2023-05-05 11:22] LABS: Appearance Urine Clear; Color Urine Yellow; Glucose Urine UA Negative (Negative); Leukocyte Esterase Urine Small (1+) (Negative); Nitrite Urine Negative (Negative); Specific Gravity - Urine <= 1.005 (1.005-1.025); UMIC TRIGGER UACC YES; Urine Blood Negative (Negative); Urine Ketones Negative (Negative); Urine Protein Negative (Neg-Trace)
[2023-05-05 11:40] LABS: Folate 15.5 ng/mL (> or = 4.0); Vitamin B12 1037 pg/mL (200-900)
[2023-05-05 11:46] LABS: Bacteria Urine None Seen (None Seen); Hyaline Casts Urine 0-2 /LPF (0-2); RBC Urine 0-2 /HPF (0-2); Squamous Epithelial Cell Urine 0-2 /HPF (0-2); UACC Culture Trigger YES; WBC Urine 0-5 /HPF (0-5)
[2023-05-08 14:08] LABS: Anti Nuclear Antibody Screen NEGATIVE (NEGATIVE)
[2023-05-08 22:38] LABS: Lyme Abs Screen <0.90 index
[2023-05-10 15:59] LABS: CK-BB None Detected (None Detected); CK-MB 0 % (<5); CK-MM 100 % (95-100); Creatine Kinase,Total,Serum 39 U/L (29-143)
== END 2023-05-05 09:57 | disposition home or self-care (01) ==
LOC: HO.LAB 09:56
PROVIDERS: PCP Internal Medicine; Visit Provider Internal Medicine
DX: M79.10 Myalgia, unspecified site (principal); M62.81 Muscle weakness (generalized); E53.8 Deficiency of other specified B group vitamins; E83.42 Hypomagnesemia; M79.7 Fibromyalgia; R30.0 Dysuria
CPT/HCPCS: 36415; 81001; 82552; 82607; 82746; 83735; 85652; 86038; 86140; 86431; 86617; 86618; 87086

== ENCOUNTER 2023-05-29 10:53 | Day surgery (SDC) | payer OTHER, SELFPAY ==
[2023-05-25 15:06] VITALS: BMI 22.8
[2023-05-29 11:38] VITALS: BP 133/66; PULSE 70; RESP 15; TEMP 36.5; O2SAT 99
[2023-05-29] MEDS: Lactated Ringers 1,000 ML 50 ML IVCONT (11:39)
--- NOTE | 2023-05-29 12:06 | HO.ANESPROP2 ---
[facility] Active Problems Active Problems: All Active Problems (Updated 05/05/23 @ 09:40 by Seven Jansen MD) Muscle weakness (generalized) (Acute) Myalgia (Acute) Colon cancer screening (Acute) Annual physical exam (Acute) Osteopenia (Acute) Osteoporosis (Acute) Lumbar degenerative disc disease (Acute) Acquired hypothyroidism (Acute) Pure hypercholesterolemia (Acute) Past Medical History Medical History Osteoporosis Lumbar degenerative disc disease Acquired hypothyroidism Pure hypercholesterolemia Patient : No Family History Family History Father GI problem Mother Hypothyroid Maternal Aunt Breast cancer Maternal Grandmother No problems noted. Maternal Grandfather No problems noted. Paternal Grandmother No problems noted. Paternal Grandfather No problems noted. Family history of problems with anesthesia: No Surgical History Surgical History H/O colonoscopy History of lumbar surgery History of Problems with Anesthesia: No Social History Social History Housing: House Alcohol intake: current Alcohol intake frequency: former alcohol drinker Patient Tobacco Use Status: Never used Tobacco e-Cigarette/Vaping Use: Never Used Second Hand Smoke Exposure: No Use of substances other than those prescribed or required for medical reasons: No Are you DNR?: No Advance Directives: No Advance Directives Information Provided: Yes service: No Current occupational status: employed 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 Cognitive needs: No Hearing needs: No Vision needs: Yes (reading glasses) Meds Allergies Allergy/AdvReac Type Severity Reaction Status Date / Time pitavastatin [Livalo] Allergy Intermediate myalgia/wea Verified 05/29/23 11:19 kness Sulfa (Sulfonamide Allergy Intermediate hives Verified 05/29/23 11:19 Antibiotics) sulfamethoxazole Allergy Intermediate Itching Verified 05/29/23 11:19 [From Bactrim] trimethoprim [From Bactrim] Allergy Intermediate Itching Verified 05/29/23 11:19 ezetimibe [Zetia] AdvReac Intermediate myalgia, Verified 05/29/23 11:19 weakness [id number] Reductase AdvReac Intermediate myalgia/wea Verified 05/29/23 11:19 Inhibitor kness Active Medications: Current Medications Lactated Ringer's (Lr) 1,000 mls @ 50 mls/hr IVCONT .Q20H [place] Last Admin: 05/29/23 11:39 Dose: 50 mls/hr Sodium Biphosphate/Sodium Phosphate (Sodium Phosphate,[place]-Dibasic 133 Ml Enema) 133 ml ID ONCE PRN PRN Reason: Poor Colonoscopy Prep Results Home Medications Medication Instructions Recorded Confirmed Last Taken Type ascorbate calcium (vitamin C) 500 500 mg PO DAILY 03/10/22 05/25/23 Unknown History mg tablet cholecalciferol (vitamin D3) 25 25 mcg PO DAILY 03/10/22 05/25/23 Unknown History mcg (1,000 unit) capsule coenzyme Q10 100 mg capsule 100 mg PO DAILY 03/10/22 05/25/23 Unknown History (CoQ-10) Exam Exam Date and Time: May 29, 2023 1206 Height,Weight and Vital Signs: Height 5 ft 5 in Weight 62.142 kg Last Vital Signs Temp 97.7 F 05/29/23 11:38 Pulse 70 05/29/23 11:38 Resp 15 05/29/23 11:38 BP 133/66 05/29/23 11:38 Pulse Ox 99 05/29/23 11:38 O2 Del Method Room Air 05/29/23 11:38 Airway Mallampati Class: II TM Dist: >3cm Neck ROM: Full Heart: RRR Lungs: CTA Assessment and Plan Assessment Anesthesia Assessment: Anesthesia Plan Discussed Final Anesthetic Review Family History of Problems with Anesthesia: No History of Problems with Anesthesia: No NPO: Yes ASA Class: II Final Preanesthetic Review: Meds/Allgs Chart Reviewed, Consent Obtained/Reviewed and Anes Risks/Benef Reviewed Patient Risk: Low Procedure Risk: Low Anesthetic Plan Anesthetic Plan: MAC: Disposition: Standard PACU
--- NOTE | 2023-05-29 13:07 | P.BOP_ITS ---
Brief Operative Note Date of Service: 05/29/23 Pre-op diagnosis: Screening Post-op diagnosis: other (Polyps) Procedure: Colonoscopy to the cecum with bx/removal of polyps x 2, and hot snare polypectomy x 2 at 15cm Surgeon: Elie Aguilar MD Anesthesia: MAC Was an Cnc Operator used for this Procedure?: No Estimated blood loss (mL): 2.0 Pathology: other (A. Transverse colon polyp B. Polyp at 50cm C. Polyp at 15cm) Condition: stable Disposition: PACU
[2023-05-29 13:08] VITALS: BP 126/61; PULSE 79; RESP 16; TEMP 36.1; O2SAT 97
--- NOTE | 2023-05-29 13:22 | HO.POSTANES ---
Post Anesthesia Evaluation Post Anesthesia Evaluation Date of Service: 05/29/23 Vital Signs: Vital Signs Temp Pulse Resp BP Pulse Ox O2 Del Method 05/29/23 13:08 97 F 79 16 126/61 97 Room Air 05/29/23 11:38 97.7 F 70 15 133/66 99 Room Air Anesthesia: Monitored Mental Status: Awake Pain Control: Satisfactory Nausea/Vomiting: None Hydration: Adequate Anesthesia-Related Issues: No Anes. Related Issues
[2023-05-29 13:23] VITALS: BP 130/77; PULSE 63; RESP 17; TEMP 36.1; O2SAT 100
--- NOTE | 2023-05-29 13:27 | OP_ITS ---
DATE OF SERVICE: 05/29/2023 SURGEON: Elie Aguilar MD INDICATIONS: The patient presents for evaluation of colorectal cancer screening. Full consent has been obtained from her for this, including risks of bleeding and perforation. PREOPERATIVE DIAGNOSIS: Colorectal cancer screening. POSTOPERATIVE DIAGNOSIS: PROCEDURE PERFORMED: Colonoscopy to cecum with biopsy and removal of polyps x2, and hot snare polypectomy x2. ESTIMATED BLOOD LOSS: COMPLICATIONS: ANESTHESIA: Monitored anesthesia care. ASSISTANTS: SPECIMENS: POSTOPERATIVE DIAGNOSES: Colorectal cancer screening, colon polyps, diverticulosis, and internal hemorrhoids. DESCRIPTION OF PROCEDURE: The patient was placed in the left lateral decubitus position. The digital rectal exam revealed no abnormalities. The Olympus video pediatric colonoscope was entered into the rectum and advanced easily to the cecum. Once in the cecum, I did identify normal-appearing cecal pouch with appendiceal orifice and a normal-appearing ileocecal valve. The entire cecum and ileocecal valve appeared normal. There was transillumination of light deep in the right lower quadrant. The scope was slowly withdrawn assessing all mucosal surfaces carefully. Preparation was excellent. In the transverse colon and at 50 cm were flat, approximately 4 mm polyps, which were each biopsied and completely removed with cold biopsy forceps. At 15 cm were 2 approximately 6 to 8 mm polyps, which were each snared and removed with a hot snare polypectomy. The polypectomy sites appeared clean, without any sign of residual polyp nor bleeding. The polyps were recovered by suction. I did not visualize any other polyps, colitis, nor angiodysplasia. There was a mild amount of sigmoid diverticulosis. In the rectum, scope was retroflexed visualizing internal hemorrhoids, but no other pathology. The rectal mucosa appeared normal. Scope was straightened and withdrawn from the patient. She tolerated the procedure well and was returned to the recovery area in stable condition. IMPRESSION: 1. Colon polyps. 2. Diverticulosis. 3. Internal hemorrhoids. PLAN: The results of the pathology will be checked. If any of these are tubular adenomas, I would recommend a followup coloscopy in 5 years. If they all happen to be hyperplastic, I would recommend a followup coloscopy in 10 years. She was advised not to use any aspirin and NSAIDs for 1 week. Elie Aguilar MD RMW/MELANYL / [phone] [facility]
== END 2023-05-29 13:55 | disposition home or self-care (01) ==
PROVIDERS: PCP Internal Medicine; Visit Provider Internal Medicine
PROC: 0DJD8ZZ Inspection of Lower Intestinal Tract, Via Natural or Artificial Opening Endoscopic (ICD-10-PCS; CPT 45378; principal; 2023-05-29 12:20)
DX: Z12.11 Encounter for screening for malignant neoplasm of colon (principal); D12.3 Benign neoplasm of transverse colon; K57.30 Diverticulosis of large intestine without perforation or abscess without bleeding; K64.8 Other hemorrhoids; E78.00 Pure hypercholesterolemia, unspecified; E03.9 Hypothyroidism, unspecified; Z79.899 Other long term (current) drug therapy
CPT/HCPCS: 45385; 45380; 88305; J2704

== ENCOUNTER 2023-10-31 07:40 | Outpatient (REF) | payer OTHER, SELFPAY ==
[2023-10-31 07:53] LABS: MANUAL DIFF FLAG NO
[2023-10-31 08:26] LABS: Appearance Urine Clear; Color Urine Yellow; Glucose Urine UA Negative (Negative); Leukocyte Esterase Urine Trace (Negative); Nitrite Urine Negative (Negative); UMIC TRIGGER UACC YES; Urine Blood Negative (Negative); Urine Ketones Negative (Negative); Urine Protein Negative (Neg-Trace)
[2023-10-31 08:29] LABS: Basophils Percent Auto 0.7 % (0-2); Eosinophils Absolute Auto 0.1 X10*3/uL (0.0-0.4); Eosinophils Percent Auto 2.3 % (0-4); Hematocrit 40.8 % (37.0-47.0); Hemoglobin 13.4 g/dl (12.0-16.0); Imm Gran Abs Auto 0.01 X10*3/uL (0.00-0.03); Imm Gran Pct Auto 0.2 % (0.0-0.4); Lymphocytes Absolute Auto 1.7 X10*3/uL (1.2-4.9); Lymphocytes Percent Auto 30.6 % (20-40); Mean Corpuscular HGB Conc 32.8 g/dl (31.0-35.0); Mean Corpuscular Hemoglobin 29.5 pg (27.0-33.0); Mean Corpuscular Volume 89.7 fL (80.0-98.0); Mean Platelet Volume 9.3 fL (9.4-12.3); Monocytes Absolute Auto 0.6 X10*3/uL (0.1-1.2); Neutrophils Absolute Auto 3.1 x10*3/uL (2.0-8.3); Neutrophils Percent Auto 56.2 % (45-73); Platelet Count 234 X10*3/uL (160-400); Red Blood Count 4.55 X10*6/uL (4.20-5.50); Red Cell Distribution Width 13.1 % (11.0-16.0); White Blood Count 5.6 X10*3/uL (4.8-10.8)
[2023-10-31 08:31] LABS: Bacteria Urine None Seen (None Seen); Hyaline Casts Urine 0-2 /LPF (0-2); RBC Urine 0-2 /HPF (0-2); Squamous Epithelial Cell Urine 0-2 /HPF (0-2); WBC Urine 0-5 /HPF (0-5)
[2023-10-31 09:15] LABS: Alanine Aminotransferase 16 U/L (0-31); Albumin Level 4.2 g/dL (3.5-5.0); Alkaline Phosphatase 70 U/L (39-117); Anion Gap 11 (12-20); Aspartate Amino Transferase 16 U/L (5-31); Bilirubin Total 0.5 mg/dL (0.0-1.0); Blood Urea Nitrogen 17 mg/dL (9-16); Calcium 9.4 mg/dL (8.4-10.2); Carbon Dioxide 27 mmol/L (22-29); Chloride 103 mmol/L (96-108); Cholesterol 249 mg/dL (<200); Estimated Glomerular Filt Rate > 60; Glucose Fasting 94 mg/dL (60-99); HDL Cholesterol 72 mg/dL (>40); LDL Cholesterol Calculated 162 mg/dL (<100); Potassium 4.3 mmol/L (3.3-5.1); Sodium 137 mmol/L (135-145); Triglycerides 75 mg/dL (<150)
[2023-10-31 09:34] LABS: Free T4 (Free Thyroxine) 1.43 ng/dL (0.71-1.85); Thyroid Stimulating Hormone 0.47 uIU/mL (0.32-4.0); Vitamin D 25-OH Total 34.5 ng/mL (>30)
[2023-10-31 09:39] LABS: Folate 8.3 ng/mL (> or = 4.0); Vitamin B12 683 pg/mL (200-900)
== END 2023-10-31 07:41 | disposition home or self-care (01) ==
LOC: HO.LAB 07:40
PROVIDERS: PCP Internal Medicine; Visit Provider Internal Medicine
DX: E78.00 Pure hypercholesterolemia, unspecified (principal); E03.9 Hypothyroidism, unspecified; E55.9 Vitamin D deficiency, unspecified; E53.8 Deficiency of other specified B group vitamins; I10 Essential (primary) hypertension
CPT/HCPCS: 36415; 80053; 80061; 81001; 82306; 82607; 82746; 84439; 84443; 85025

== ENCOUNTER 2023-11-08 08:48 | Outpatient (AMB) | payer OTHER, SELFPAY ==
--- NOTE | 2023-11-08 08:53 | MHC.PC.OV ---
Vital Signs 11/08/23 08:55 11/08/23 08:58 Height 5 ft 5 in Weight 140 lb 4 oz BMI 23.3 BP 150/78 H 120/72 Blood Pressure Location Lt brachial Lt brachial Position Sitting Sitting Pulse 98 Pulse Source Pulse Oximeter Pulse Oximetry (%) 99 Oxygen Delivery Method Room Air Intake Visit Reasons: hyperlipidemia, hypothyroidism Intake Note: Patient is here to follow up on HLD, Hypothyroidism. 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: No Carton Counter Feeder: Not Required per policy Accompanied by: Self / Same As Patient Allergies pitavastatin [Livalo] Allergy (Intermediate, Verified 11/08/23 09:33) myalgia/weakness Sulfa (Sulfonamide Antibiotics) Allergy (Intermediate, Verified 11/08/23 09:33) hives sulfamethoxazole [From Bactrim] Allergy (Intermediate, Verified 11/08/23 09:33) Itching trimethoprim [From Bactrim] Allergy (Intermediate, Verified 11/08/23 09:33) Itching ezetimibe [Zetia] Adverse Reaction (Intermediate, Verified 11/08/23 09:33) myalgia, weakness [id number]-ZAX-VfM Reductase Inhibitor Adverse Reaction (Intermediate, Verified 11/08/23 09:33) myalgia/weakness Medication List - Last Reconciled 11/08/23 by Seven Jansen MD ascorbate calcium (vitamin C) 500 mg PO DAILY cholecalciferol (vitamin D3) 25 mcg PO DAILY coenzyme Q10 (CoQ-10) 100 mg PO DAILY levothyroxine 88 mcg PO DAILY Tobacco use date assessed: 11/08/23 Fall risk assessment: No Falls in past year Last assessed Fall Risk: 11/08/23 Dental Screening Dental Screen Date: 11/08/23 Did you have a dental visit in the last 12 months?: Yes Did you have a dental problem in the last 6 months where you did not have access to dental care?: No Was dental information given to patient?: Patient has dentist HPI hyperlipidemia, hypothyroidism HPI Details Patient comes in today for her follow up visit States that she feels okay She denies any headaches or dizziness Denies any chest pains, no SOB No nausea/vomiting, no abdominal pain No change in bowel habits noted Had her follow up labs done last week - to discuss her results [facility] Medical History Osteoporosis Lumbar degenerative disc disease Acquired hypothyroidism Pure hypercholesterolemia Surgical History H/O colonoscopy History of lumbar surgery Family History Father GI problem Mother Hypothyroid Maternal Aunt Breast cancer Maternal Grandmother No problems noted. Maternal Grandfather No problems noted. Paternal Grandmother No problems noted. Paternal Grandfather No problems noted. 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 1. Little interest or pleasure in doing things: not at all 2. Feeling down, depressed, or hopeless: not at all 3. Trouble falling or staying asleep, or sleeping too much: not at all 4. Feeling tired or having little energy: not at all 5. Poor appetite or overeating: not at all 6. Feeling bad about yourself - or that you are a failure or have let yourself or your family down: not at all 7. Trouble concentrating on things, such as reading the newspaper or watching television: not at all 8. Moving or speaking so slowly that other people could have noticed. Or the opposite - being so fidgety or restless that you have been moving around a lot more than usual: not at all 9. Thoughts that you would be better off or of hurting yourself in some way: not at all Total score: 0 Depression Screening Interpretation: Negative Depression Screening Done: Yes 72415 - PHQ-9 Billing: Yes Source: Developed by Drs. Elie Lowe, Elizabeth Will, Terry Telles and colleagues, with an educational maria g from [employer] Thrive Questionnaire Date Thrive assessed: 11/08/23 I am a: Patient What is your living situation today?: I have a steady place to live Within the past 12 months, did the food you bought not last and you didn't have the money to get more?: Never true Within the past 12 months, did you worry whether your food would run out before you got money to buy more?: Never true Do you have trouble paying for medicines?: No Do you have trouble getting transportation to medical appointments?: No Do you have trouble paying your heating and electricity bill?: No Do you have trouble taking care of your child, family member or friend?: No Do you have trouble with day-to-day activities such as bathing, preparing meals, shopping, managing finances, etc.?: No Are you currently unemployed and looking for a job?: No Are you interested in more education?: No Currently or been in a relationship where the following occur: no concerns reported THRIVE Score: 0 AUDIT C Alcohol Use Questionnaire (AUDIT-C) 1. How often do you have a drink containing alcohol?: Monthly or less 2. How many drinks containing alcohol do you have on a typical day when you are drinking?: 1 or 2 3. How often do you have six or more drinks on one occasion?: Never Total Score: 1 Score Reviewed/Action Taken: Yes JUSTA-7 AMB Questionnaire JUSTA-7 Date JUSTA - 7 assessed: 11/08/23 Feeling nervous, anxious, or on edge: 0 = Not at all Not being able to stop or control worryin = Not at all Worrying too much about different things: 0 = Not at all Trouble relaxin = Not at all Being so restless that it is hard to sit still: 0 = Not at all Becoming easily annoyed or irritable: 0 = Not at all Feeling afraid as if something awful might happen: 0 = Not at all Total JUSTA-7 score (0-4 normal; 5-9 mild; 10-14 moderate; 15-21 severe): 0 Source: Developed by Drs. Elie Lowe, Elizabeth Will, Terry Telles and colleagues, with an educational maria g from [employer] Review of Systems Const Denies chills, Denies fatigue, Denies fever(s) and Denies headache(s) ENT Denies dysphagia, Denies dizziness, Denies otalgia, Denies headache(s), Denies neck pain, Denies odynophagia and Denies sore throat Card Denies chest pain, Denies palpitations and Denies dyspnea Resp Denies cough and Denies dyspnea GI Denies abdominal pain, Denies constipation, Denies dysphagia, Denies heartburn, Denies diarrhea, Denies nausea, Denies odynophagia and Denies vomiting Denies difficulty voiding, Denies nocturia, Denies dysuria and Denies urinary urgency Musc Reports back pain (mild, on and off) and Denies neck pain Skin/Breast Denies rash Neuro Denies dizziness and Denies headache(s) Endo Denies fatigue and Denies palpitations Physical exam (Primary Care) Vital Signs: Last Vital Signs Pulse 98 11/08/23 08:55 BP 120/72 11/08/23 08:58 Pulse Ox 99 11/08/23 08:55 Oxygen Delivery Method Room Air 11/08/23 08:55 BMI result Body Mass Index 23.3 Tobacco/Smoking Status: Tobacco use Status Tobacco use date assessed 11/08/23 11/08/23 09:00 Patient Tobacco Use Status Never used Tobacco 11/08/23 09:00 e-Cigarette/Vaping Use Never Used 11/08/23 09:00 PHQ-9: PHQ-9 Score PHQ-9: Total score 0 11/08/23 09:00 Depression Screening Interpretation: Negative Thrive Assessment: Date of Thrive Assessment Date Thrive assessed 11/08/23 11/08/23 09:00 Currently or been in a relationship where the following occur: no concerns reported Const General: no acute distress and alert HENMT Ears: TM's normal bilaterally and EAC's normal Throat: Yes posterior oropharynx normal and Yes tonsils normal (no TP congestion) Neck Neck: Yes no lymphadenopathy and Yes supple Resp Auscultation: clear to auscultation bilaterally, no rales and no wheezes Cardio Rate: regular rate Rhythm: regular rhythm Heart sounds: no murmurs GI Palpation (GI): Soft to palpation and nontender Auscultation: normal bowel sounds General: Yes no CVA tenderness Back/Spine/Pelvis Back: no CVA tenderness Thoracic/Lumbar Spine: lumbar spinal tenderness Skin Rashes: no rashes Extrem General: Yes no clubbing, cyanosis or edema Results Reviewed Results Reviewed: Laboratory Tests 1010/31/23 10/31/23 07:37 07:51 07:52 WBC 5.6 Hgb 13.4 Hct 40.8 Plt Count 234 Sodium 137 Potassium 4.3 Creatinine 0.68 Estimated GFR > 60 Fasting Glucose 94 Calcium 9.4 AST 16 ALT 16 Total Protein 7.0 Triglycerides 75 Cholesterol 240 H 249 H LDL Cholesterol, Calc 153 H 162 H HDL Cholesterol 72 Vitamin B12 683 25-OH Vitamin D Total 34.5 TSH 0.47 Free T4 1.43 Ur Specific [place] 1.010 Urine Protein Negative Urine Glucose (UA) Negative Urine Blood Negative Urine Nitrite Negative Ur Leukocyte Esterase Trace H Assessment and Plan Assessment & Plan (1) Pure hypercholesterolemia: Code(s): E78.00 - Pure hypercholesterolemia, unspecified Plan: Results of her labs done last week reviewed and discussed with patient - she is advised that her cholesterol levels, especially her LDL cholesterol, remain significantly elevated and have increased further (slightly) from previous Reinforced low cholesterol diet She has so far NOT been able to tolerate all of the available statins as well as Ezetimibe and Colesevelam due to side effects Have discussed with her that the remaining options at this time are the newer PCSK9 inhibitors - patient states that she would like to think about this for now and would like to continue with diet modification alone Will recheck her labs and fasting lipids in 6 months for follow up (2) Acquired hypothyroidism: Code(s): E03.9 - Hypothyroidism, unspecified Plan: Her TFTs are normal on her recent labs Continue Levothyroxine 88 mcg QD Will continue to monitor her TFTs regularly Was last seen by Dr. Hassan last year and was advised to just continue seeing her PCP regularly and to see them (endocrinology) only as needed for her thyroid issues (3) Osteoporosis: Code(s): M81.0 - Age-related osteoporosis without current pathological fracture Qualifiers: Osteoporosis type: age-related Presence of current pathological fracture: without current pathological fracture Qualified Code(s): M81.0 - Age-related osteoporosis without current pathological fracture Plan: BMD done in 12/2018 showed (+) osteopenia but her repeat BMD done in September 2022 revealed (+) osteoporosis based on the lowest T-score value of -2.5 in the femoral neck applying the WHO criteria Her current BMD in the AP spine has declined 12.1% from previous; BMD in the left femur showed a 5.5% decrease from previous She is encouraged to continue her daily oral calcium and Vitamin D supplements and to exercise regularly and stay active but reinforced fall precautions She was also recommended to start on Rx for her osteoporosis but she prefers NOT to and would like to get her BMD repeated in 2 years to see where she will be at the time She is now following up with Dr. Hassan for her osteoporosis (4) Lumbar degenerative disc disease: Code(s): M51.36 - Other intervertebral disc degeneration, lumbar region Plan: Reinforced activity and weight-lifting restrictions to help minimize her low back pain Plan Follow up in 6 months Orders: Orders Lipid Panel 6 Months E78.00 - Pure hypercholesterolemia, unspecified Comprehensive [place]. Panel Fast 6 Months E78.00 - Pure hypercholesterolemia, unspecified UA CC w/rflx Micro + Cult 6 Months R30.0 - Dysuria Thyroid Stimulating Hormone 6 Months E03.9 - Hypothyroidism, unspecified Complete Blood Count Auto Diff 6 Months D64.9 - Anemia, unspecified Free T4 (Free Thyroxine) 6 Months E03.9 - Hypothyroidism, unspecified Vitamin D 25-OH Total 6 Months E55.9 - Vitamin D deficiency, unspecified Coding Level of Care Code Est Pt Level 4 (80144) Diagnoses Pure hypercholesterolemia E78.00 Acquired hypothyroidism E03.9 Age-related osteoporosis without current pathological fracture M81.0 Osteoporosis type: age-related Presence of current pathological fracture: without current pathological fracture Lumbar degenerative disc disease M51.36
[2023-11-08 08:55] VITALS: BP 150/78; PULSE 98; O2SAT 99; BMI 23.3
[2023-11-08 08:58] VITALS: BP 120/72
== END 2023-11-08 09:56 | disposition home or self-care (01) ==
PROVIDERS: PCP Internal Medicine; Visit Provider Internal Medicine
DX: E78.00 Pure hypercholesterolemia, unspecified (principal); E03.9 Hypothyroidism, unspecified; M81.0 Age-related osteoporosis without current pathological fracture; M51.36 Other intervertebral disc degeneration, lumbar region
CPT/HCPCS: 99214

== ENCOUNTER 2024-03-13 09:58 | Outpatient (REF) | payer OTHER, SELFPAY ==
--- NOTE | ~2024-03-13 | MM_ITS ---
EXAMINATION: MM SCREENING DIGITAL BREAST TOMOSYNTHESIS, BILATERAL CLINICAL INFORMATION: Screening. Asymptomatic. COMPARISON: Mammography: Comparison is made with available priors TECHNIQUE: Digital breast tomosynthesis is performed in both the craniocaudal and mediolateral oblique views along with computer-aided detection (CAD). Synthesized 2D images are generated from the tomosynthesis. FINDINGS: The breasts are heterogeneously dense, which may obscure small masses (ACR BI-RADS breast composition Category c). There are no significant masses, abnormal calcifications, or other abnormalities. MM/MM tomosynthesis screening BI IMPRESSION: No mammographic evidence of malignancy. ASSESSMENT: BI-RADS BI-RADS 1 - Negative RECOMMENDATION: Routine annual mammography screening. 1 year F/U This examination should not preclude the clinical evaluation of a suspicious palpable abnormality. This patient's information was entered into a reminder system with a target due date for their next mammogram. Electronically signed by: Katarina Trivedi DO 04/05/2024 04:39 PM EDT
== END 2024-03-13 09:59 | disposition home or self-care (01) ==
LOC: HO.MAMMO 09:58
PROVIDERS: PCP Internal Medicine; Visit Provider Internal Medicine
DX: Z12.31 Encounter for screening mammogram for malignant neoplasm of breast (principal)
CPT/HCPCS: 77063; 77067

== ENCOUNTER → 2024-03-13 10:00 | Outpatient (BNV) | payer OTHER, SELFPAY | PROVIDERS: PCP Internal Medicine; Visit Provider Internal Medicine | DX: Z12.31 Encounter for screening mammogram for malignant neoplasm of breast (principal) | CPT/HCPCS: 77063; 77067 ==

== ENCOUNTER 2024-05-02 08:15 | Outpatient (REF) | payer OTHER, SELFPAY ==
[2024-05-02 11:18] LABS: MANUAL DIFF FLAG NO
[2024-05-02 11:24] LABS: Basophils Percent Auto 0.8 % (0-2); Eosinophils Absolute Auto 0.2 X10*3/uL (0.0-0.4); Eosinophils Percent Auto 3.3 % (0-4); Hematocrit 43.4 % (37.0-47.0); Hemoglobin 14.1 g/dl (12.0-16.0); Imm Gran Abs Auto 0.01 X10*3/uL (0.00-0.03); Imm Gran Pct Auto 0.2 % (0.0-0.4); Lymphocytes Absolute Auto 1.5 X10*3/uL (1.2-4.9); Lymphocytes Percent Auto 30.3 % (20-40); Mean Corpuscular HGB Conc 32.5 g/dl (31.0-35.0); Mean Corpuscular Hemoglobin 29.6 pg (27.0-33.0); Mean Platelet Volume 9.9 fL (9.4-12.3); Monocytes Absolute Auto 0.5 X10*3/uL (0.1-1.2); Monocytes Percent Auto 9.2 % (2-11); Neutrophils Absolute Auto 2.8 x10*3/uL (2.0-8.3); Neutrophils Percent Auto 56.2 % (45-73); Platelet Count 239 X10*3/uL (160-400); Red Blood Count 4.77 X10*6/uL (4.20-5.50); Red Cell Distribution Width 13.2 % (11.0-16.0); White Blood Count 4.9 X10*3/uL (4.8-10.8)
[2024-05-02 11:41] LABS: Alanine Aminotransferase 20 U/L (0-31); Albumin Level 4.3 g/dL (3.5-5.0); Alkaline Phosphatase 85 U/L (39-117); Anion Gap 10 (12-20); Aspartate Amino Transferase 19 U/L (5-31); Bilirubin Total 0.5 mg/dL (0.0-1.0); Blood Urea Nitrogen 18 mg/dL (9-16); Carbon Dioxide 28 mmol/L (22-29); Chloride 102 mmol/L (96-108); Cholesterol 265 mg/dL (<200); Estimated Glomerular Filt Rate > 60; Glucose Fasting 94 mg/dL (60-99); HDL Cholesterol 73 mg/dL (>40); LDL Cholesterol Calculated 172 mg/dL (<100); Potassium 4.4 mmol/L (3.3-5.1); Sodium 136 mmol/L (135-145); Total Protein 7.2 g/dL (6.5-8.0); Triglycerides 104 mg/dL (<150)
[2024-05-02 12:05] LABS: Free T4 (Free Thyroxine) 1.21 ng/dL (0.71-1.85); Thyroid Stimulating Hormone 0.34 uIU/mL (0.32-4.0); Vitamin D 25-OH Total 47.6 ng/mL (>30)
[2024-05-02 14:40] LABS: Appearance Urine Clear; Color Urine Yellow; Glucose Urine UA Negative (Negative); Leukocyte Esterase Urine Small (1+) (Negative); Nitrite Urine Negative (Negative); Specific Gravity - Urine <= 1.005 (1.005-1.025); UMIC TRIGGER UACC YES; Urine Blood Negative (Negative); Urine Ketones Negative (Negative); Urine Protein Negative (Neg-Trace)
[2024-05-02 14:59] LABS: Bacteria Urine None Seen (None Seen); Hyaline Casts Urine 0-2 /LPF (0-2); RBC Urine 0-2 /HPF (0-2); Squamous Epithelial Cell Urine 0-2 /HPF (0-2); UACC Culture Trigger YES; WBC Urine 0-5 /HPF (0-5)
== END 2024-05-02 08:16 | disposition home or self-care (01) ==
LOC: HO.WFDLDS 08:15
PROVIDERS: Visit Provider Internal Medicine
DX: D64.9 Anemia, unspecified (principal); E78.00 Pure hypercholesterolemia, unspecified; E55.9 Vitamin D deficiency, unspecified; E03.9 Hypothyroidism, unspecified; R30.0 Dysuria
CPT/HCPCS: 36415; 80053; 80061; 81001; 82306; 84439; 84443; 85025; 87086

== ENCOUNTER 2024-05-08 15:36 | Outpatient (AMB) | payer OTHER, SELFPAY ==
[2024-05-08 15:40] VITALS: BP 130/82; PULSE 83; O2SAT 98; BMI 23.1
--- NOTE | 2024-05-08 15:40 | MHC.PC.OV ---
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 Required: No Accompanied by: Self / Same As Patient Allergies pitavastatin [Livalo] Allergy (Intermediate, Verified 05/08/24 16:17) myalgia/weakness Sulfa (Sulfonamide Antibiotics) Allergy (Intermediate, Verified 05/08/24 16:17) hives sulfamethoxazole [From Bactrim] Allergy (Intermediate, Verified 05/08/24 16:17) Itching trimethoprim [From Bactrim] Allergy (Intermediate, Verified 05/08/24 16:17) Itching colesevelam Adverse Reaction (Severe, Verified 05/08/24 16:26) myalgia/weakness ezetimibe [Zetia] Adverse Reaction (Intermediate, Verified 05/08/24 16:17) myalgia, weakness Kalqyol-DVZ-PfB Reductase Inhibitor Adverse Reaction (Intermediate, Verified 05/08/24 16:17) myalgia/weakness Medication List - Last Reconciled 05/08/24 by Seven Jansen MD ascorbate calcium (vitamin C) 500 mg PO DAILY cholecalciferol (vitamin D3) 25 mcg PO DAILY levothyroxine 88 mcg PO DAILY Tobacco use date assessed: 05/08/24 Fall risk assessment: No Falls in past year Last assessed Fall Risk: 05/08/24 Dental Screening Dental Screen Date: 05/08/24 Did you have a dental visit in the last 12 months?: Yes Did you have a dental problem in the last 6 months where you did not have access to dental care?: No Was dental information given to patient?: Patient has dentist HPI annual exam HPI Details Patient comes in today for her annual physical examination States that she currently feels okay She denies any headaches or dizziness Denies any chest pains, no SOB No nausea/vomiting, no abdominal pain No change in bowel habits noted She denies any acute urinary symptoms She had her follow up labs done last week - to discuss her results She had her annual mammogram done a couple of months ago in February 2024 Her colonoscopy was last done in 05/2023 - was recommended to get repeat colonoscopy in 5 years Her BMD was last done in 09/2022 - will repeat this in the spring Her last pap smear and gynecology exam was done back on 09/21/2016 [facility] Medical History (Updated 05/09/24 @ 05:25 by Seven Jansen MD) Osteoporosis Lumbar degenerative disc disease Acquired hypothyroidism Pure hypercholesterolemia Surgical History (Updated 05/08/24 @ 16:23 by Seven Jansen MD) H/O colonoscopy History of lumbar surgery Family History Father GI problem Mother Hypothyroid Maternal Aunt Breast cancer Maternal Grandmother No problems noted. Maternal Grandfather No problems noted. Paternal Grandmother No problems noted. Paternal Grandfather No problems noted. 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 1. Little interest or pleasure in doing things: not at all 2. Feeling down, depressed, or hopeless: not at all 3. Trouble falling or staying asleep, or sleeping too much: not at all 4. Feeling tired or having little energy: not at all 5. Poor appetite or overeating: not at all 6. Feeling bad about yourself - or that you are a failure or have let yourself or your family down: not at all 7. Trouble concentrating on things, such as reading the newspaper or watching television: not at all 8. Moving or speaking so slowly that other people could have noticed. Or the opposite - being so fidgety or restless that you have been moving around a lot more than usual: not at all 9. Thoughts that you would be better off or of hurting yourself in some way: not at all Total score: 0 Depression Screening Interpretation: Negative Depression Screening Done: Yes 11897 - PHQ-9 Billing: Yes Source: Developed by Drs. Elie Lowe, Terry Moncada and colleagues, with an educational maria g from [employer]. Thrive Questionnaire Date Thrive assessed: 05/08/24 I am a: Patient What is your living situation today?: I have a steady place to live Within the past 12 months, did the food you bought not last and you didn't have the money to get more?: Never true Within the past 12 months, did you worry whether your food would run out before you got money to buy more?: Never true Do you have trouble paying for medicines?: No Do you have trouble getting transportation to medical appointments?: No Do you have trouble paying your heating and electricity bill?: No Do you have trouble taking care of your child, family member or friend?: No Do you have trouble with day-to-day activities such as bathing, preparing meals, shopping, managing finances, etc.?: No Are you currently unemployed and looking for a job?: No Are you interested in more education?: No Please select the resources that you would like help with: None Currently or been in a relationship where the following occur: No concerns reported THRIVE Score: 0 AUDIT C Alcohol Use Questionnaire (AUDIT-C) 1. How often do you have a drink containing alcohol?: Never 3. How often do you have six or more drinks on one occasion?: Never Total Score: 0 Score Reviewed/Action Taken: Yes JUSTA-7 AMB Questionnaire JUSTA-7 Date JUSTA - 7 assessed: 05/08/24 Feeling nervous, anxious, or on edge: 0 = Not at all Not being able to stop or control worryin = Not at all Worrying too much about different things: 0 = Not at all Trouble relaxin = Not at all Being so restless that it is hard to sit still: 0 = Not at all Becoming easily annoyed or irritable: 0 = Not at all Feeling afraid as if something awful might happen: 0 = Not at all Total JUSTA-7 score (0-4 normal; 5-9 mild; 10-14 moderate; 15-21 severe): 0 Source: Developed by Elizabeth Hoyt Kurt Kroenke and colleagues, with an educational maria g from [employer] Review of Systems Const Denies chills, Denies fatigue, Denies fever(s), Denies headache(s) and Denies malaise Eyes Denies blurry vision, Denies change in vision, Denies irritation and Denies itchy eyes ENT Denies dysphagia, Denies dizziness, Denies otalgia, Denies headache(s), Denies nasal congestion, Denies neck pain, Denies odynophagia, Denies sinus pain and Denies sore throat Card Denies chest pain, Denies rapid heart rate, Denies irregular heart rhythm, Denies palpitations and Denies dyspnea Resp Denies chest congestion, Denies cough, Denies dyspnea and Denies wheezing GI Denies abdominal pain, Denies bloating, Denies constipation, Denies dysphagia, Denies heartburn, Denies diarrhea, Denies nausea, Denies odynophagia and Denies vomiting Denies hematuria, Denies urinary frequency, Denies dysuria, Denies urinary incontinence and Denies urinary urgency Musc Reports back pain (over the lower back - chronic but she is able to manage her low back pain), Denies arthralgias, Denies joint swelling, Denies muscle weakness and Denies neck pain Skin/Breast Denies breast pain, Denies breast mass, Denies change in pigmentation, Denies lesions, Denies rash and Denies unusual bruising Neuro Denies dizziness, Denies headache(s) and Denies paresthesias Psych Denies anxiety and Denies depression Endo Denies fatigue and Denies palpitations Tay/Lymph Denies easy bruising Aller/Immun Denies itchy eyes and Denies wheezing Physical exam (Primary Care) Vital Signs: Last Vital Signs Pulse 83 05/08/24 15:40 BP 130/82 05/08/24 15:40 Pulse Ox 98 05/08/24 15:40 Oxygen Delivery Method Room Air 05/08/24 15:40 BMI result Body Mass Index 23.1 Tobacco/Smoking Status: Tobacco use Status Tobacco use date assessed 05/08/24 05/08/24 15:41 Patient Tobacco Use Status Never used Tobacco 05/08/24 15:41 e-Cigarette/Vaping Use Never Used 05/08/24 15:41 PHQ-9: PHQ-9 Score PHQ-9: Total score 0 05/08/24 16:17 Depression Screening Interpretation: Negative Thrive Assessment: Date of Thrive Assessment Date Thrive assessed 05/08/24 05/08/24 15:41 Currently or been in a relationship where the following occur: No concerns reported Const General: no acute distress, alert and awake Orientation/consciousness: patient oriented x3 HENMT Head: Yes normocephalic and Yes atraumatic Ears: external ears normal, TM's normal bilaterally and EAC's normal General nose exam: No nasal discharge present Face and sinus: Yes normal facial exam and Yes sinuses nontender Teeth and gingiva: dentition normal Throat: Yes posterior oropharynx normal and Yes tonsils normal (no TP congestion) Eyes Eyelids: Yes eyelids normal Conjunctivae: conjunctivae normal Pupils: Equal, round and reactive pupils present EOM: EOMs intact bilaterally Neck Neck: Yes no lymphadenopathy and Yes supple Thyroid: Thyroid normal Resp Auscultation: clear to auscultation bilaterally, no rales and no wheezes Cardio Rate: regular rate Rhythm: regular rhythm Heart sounds: no murmurs GI Palpation (GI): Soft to palpation, nontender and No hepatosplenomegaly present Auscultation: normal bowel sounds General: Yes no CVA tenderness Back/Spine/Pelvis Back: no CVA tenderness Thoracic/Lumbar Spine: lumbar spinal tenderness (mild) Skin Lesions: no lesions Rashes: no rashes Neuro General: patient oriented x3, moves all extremities, no focal motor deficits and CN's II-XI intact bilaterally Cranial nerves: Yes Equal, round and reactive pupils present Cognition (Neuro): normal cognition Gait exam (Neuro): Normal gait present Extrem General: Yes no clubbing, cyanosis or edema Results Reviewed Results Reviewed: Laboratory Tests 05/02/24 05/02/24 08:16 12:39 WBC 4.9 Hgb 14.1 Hct 43.4 Plt Count 239 Sodium 136 Potassium 4.4 Creatinine 0.78 Estimated GFR > 60 Fasting Glucose 94 Calcium 10.0 D AST 19 ALT 20 Triglycerides 104 Cholesterol 265 H LDL Cholesterol, Calc 172 H HDL Cholesterol 73 25-OH Vitamin D Total 47.6 TSH 0.34 Free T4 1.21 Ur Specific Henriette <= 1.005 Urine Protein Negative Urine Glucose (UA) Negative Urine Blood Negative Urine Nitrite Negative Ur Leukocyte Esterase Small (1+) H Coding Level of Care Code Est Pt Prev Care >65y(93561) Diagnoses Annual physical exam Z00.00 Pure hypercholesterolemia E78.00 Acquired hypothyroidism E03.9 Age-related osteoporosis without current pathological fracture M81.0 Osteoporosis type: age-related Presence of current pathological fracture: without current pathological fracture Degeneration of intervertebral disc of lumbar region with discogenic back pain M51.360 Disc-related pain type: discogenic back pain only Cervical cancer screening Z12.4 Assessment & Plan Assessment & Plan (1) Annual physical exam: Code(s): Z00.00 - Encounter for general adult medical examination without abnormal findings Category: Medical Plan: Results of her labs done last week reviewed and discussed with patient She is up-to-date with her screening colonoscopy and annual mammogram She has not had her annual pap smear and gynecology exam done since 2017 and at her age, they are now optional but states that since she has not had them done in about 7 years, would like to get them done at least one more time - patient will be referred to gynecology for this (2) Pure hypercholesterolemia: Code(s): E78.00 - Pure hypercholesterolemia, unspecified Category: Medical Plan: Have advised patient that her cholesterol levels on her labs done last week are still high and have increased slightly from previous Reinforced low cholesterol diet She has NOT been able to tolerate all of the available statins as well as Ezetimibe and Colesevelam due to side effects Have discussed with her about the new PCSK9 inhibitors - patient states that she has thought about them but as they are fairly new, she has reservations about them and is concerned about potential side effects that may have not been reported yet States that she would like to continue with diet modification alone for now and admitted that she has not been as compliant with her diet recently Will recheck her labs and fasting lipids in 6 months for follow up (3) Acquired hypothyroidism: Code(s): E03.9 - Hypothyroidism, unspecified Category: Medical Plan: Her TFTs are normal on her recent labs Continue Levothyroxine 88 mcg QD Will continue to monitor her TFTs regularly She was last seen by Dr. Hassan last year and was advised to just continue seeing her PCP regularly and to see them (endocrinology) only as needed for any acute thyroid issues (4) Osteoporosis: Code(s): M81.0 - Age-related osteoporosis without current pathological fracture Category: Medical Qualifiers: Osteoporosis type: age-related Presence of current pathological fracture: without current pathological fracture Qualified Code(s): M81.0 - Age-related osteoporosis without current pathological fracture Plan: BMD done in 12/2018 showed (+) osteopenia but her repeat BMD done in September 2022 revealed (+) osteoporosis based on the lowest T-score value of -2.5 in the femoral neck applying the WHO criteria Her current BMD in the AP spine has declined 12.1% from previous; BMD in the left femur showed a 5.5% decrease from previous She is encouraged to continue her daily oral calcium and Vitamin D supplements and to exercise regularly and stay active but have again reinforced fall precautions She was also recommended to start on Rx for her osteoporosis but she prefers NOT to and would like to get her BMD repeated in 2 years to see where she will be at the time - this will be ordered at her next appointment in the spring She is now following up with Dr. Hassan for her osteoporosis (5) Lumbar degenerative disc disease: Code(s): M51.36 - Other intervertebral disc degeneration, lumbar region Category: Medical Qualifiers: Disc-related pain type: discogenic back pain only Qualified Code(s): M51.360 - Other intervertebral disc degeneration, lumbar region with discogenic back pain only Plan: Reinforced activity and weight-lifting restrictions to help minimize her low back pain (6) Cervical cancer screening: Code(s): Z12.4 - Encounter for screening for malignant neoplasm of cervix Category: Medical Plan: Per request, [facility] [place] smear and gynecology exam Plan Follow up in 6 months Orders: Orders Comprehensive [place]. Panel Fast 6 Months E78.00 - Pure hypercholesterolemia, unspecified Lipid Panel 6 Months E78.00 - Pure hypercholesterolemia, unspecified Thyroid Stimulating Hormone 6 Months E03.9 - Hypothyroidism, unspecified Complete Blood Count Auto Diff 6 Months D64.9 - Anemia, unspecified Free T4 (Free Thyroxine) 6 Months E03.9 - Hypothyroidism, unspecified Referrals OIL DERRICK OPERATOR Referral Z12.4 - Encounter for screening for malignant neoplasm of cervix
== END 2024-05-08 16:45 | disposition home or self-care (01) ==
PROVIDERS: PCP Internal Medicine; Visit Provider Internal Medicine
DX: Z00.00 Encounter for general adult medical examination without abnormal findings (principal); E78.00 Pure hypercholesterolemia, unspecified; E03.9 Hypothyroidism, unspecified; M81.0 Age-related osteoporosis without current pathological fracture; M51.360 Other intervertebral disc degeneration, lumbar region with discogenic back pain only; Z12.4 Encounter for screening for malignant neoplasm of cervix

== ENCOUNTER → 2024-05-08 15:36 | Outpatient (BNVA) | payer OTHER, SELFPAY | PROVIDERS: PCP Internal Medicine; Visit Provider Internal Medicine ==

== ENCOUNTER 2024-10-24 13:08 | Outpatient (REF) | payer OTHER, SELFPAY ==
[2024-10-29 14:22] LABS: HPV Genotype 16 Negative (Negative); HPV Genotype 18 Negative (Negative); HPV High Risk Negative (Negative)
== END 2024-10-24 13:09 | disposition home or self-care (01) ==
LOC: HO.LNP 13:08
PROVIDERS: PCP Internal Medicine; Visit Provider Advanced Practice Midwife
DX: Z01.419 Encounter for gynecological examination (general) (routine) without abnormal findings (principal)
CPT/HCPCS: 87626; 88175

== ENCOUNTER 2024-10-24 13:08 | Outpatient (AMB) | payer OTHER, SELFPAY ==
--- NOTE | 2024-10-24 13:16 | A.OFFVIS_ITS ---
Vital Signs 10/24/24 13:18 Height 5 ft 5 in Weight 136 lb BMI 22.6 BP 136/74 Intake Visit Reasons: New patient Annual Intake Note: Last pap 09/21/16 neg pap and hpv Last 03/13/24 Senior Java Software Engineer: Senior Java Software Engineer Present ([place]inah) Allergies pitavastatin [Livalo] Allergy (Intermediate, Verified 05/08/24 16:17) myalgia/weakness Sulfa (Sulfonamide Antibiotics) Allergy (Intermediate, Verified 05/08/24 16:17) hives sulfamethoxazole [From Bactrim] Allergy (Intermediate, Verified 05/08/24 16:17) Itching trimethoprim [From Bactrim] Allergy (Intermediate, Verified 05/08/24 16:17) Itching colesevelam Adverse Reaction (Severe, Verified 05/08/24 16:26) myalgia/weakness ezetimibe [Zetia] Adverse Reaction (Intermediate, Verified 05/08/24 16:17) myalgia, weakness Hjosmhm-TQR-YdJ Reductase Inhibitor Adverse Reaction (Intermediate, Verified 05/08/24 16:17) myalgia/weakness HPI Comments Details: She is a postmenopausal woman 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 She is doing well with no spot worker concerns. Currently sexually active. Denies any vaginal dryness or irritation. STI testing offered; she declined. Attempting to eat a healthy diet with calcium and vitamin D and stays active with exercise. Last pap smear; 2016, negative. Last mammogram; 2023. Colonoscopy is UTD. Denies any family history of ovarian or colon cancer. FH breast cancer. [facility] Medical History (Updated 10/24/24 @ 13:17 by Tabby Ordoñez CNM) Osteoporosis Lumbar degenerative disc disease Acquired hypothyroidism Pure hypercholesterolemia Surgical History (Updated 05/08/24 @ 16:23 by Seven Jansen MD) H/O colonoscopy History of lumbar surgery Family History Father GI problem Mother Hypothyroid Maternal Aunt Breast cancer Maternal Grandmother No problems noted. Maternal Grandfather No problems noted. Paternal Grandmother No problems noted. Paternal Grandfather No problems noted. 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 Cognitive needs: No Hearing needs: No Vision needs: Yes (reading glasses) Female Reproductive History Menstrual Menopause type: natural Total pregnancies: 2 Full term: 2 Number of Living Children: 2 Date of last pap smear: 09/21/16 (neg pap and hpv) Date of Mammogram: 03/09/24 (Birad 1) Date of last Bone Density Screenin09/29/22 Other: Colonoscopy 03/07/23 Review of Systems Const All systems reviewed & are unremarkable except as noted in HPI and below Reports as per HPI Eyes Reports no additional complaints ENT Reports no additional complaints Card Reports no additional complaints Resp Reports no additional complaints GI Reports as per HPI and Reports no additional complaints Reports as per HPI Musc Reports no additional complaints Skin/Breast Reports as per HPI Neuro Reports no additional complaints Psych Reports no additional complaints Endo Reports no additional complaints Tay/Lymph Reports no additional complaints Aller/Immun Reports no additional complaints Physical Exam Const General: cooperative, healthy appearing, no acute distress, well developed and alert Orientation/consciousness: patient oriented x3 HEENT Head: Yes normal to inspection Eyes General: appearance normal, both eyes and all related structures Neck Neck: Yes normal visual inspection Thyroid: Thyroid normal Chest Chest palpation & inspection: normal inspection of the chest and other (no puckering, dimpling, peau de orange, retraction, discharge, masses) Breast/axilla inspection: normal inspection of the breasts Breast/axilla palpation: normal palpation of the breasts Resp Effort & Inspection: normal respiratory effort GI Inspection: Yes normal to inspection Palpation (GI): Soft to palpation Rectal Exam - Female: deferred General: Yes bladder normal to palpation External Female Exam: normal external appearance and normal appearance of the urethra Speculum Exam - Vagina: normal palpation and vagina atrophic Speculum Exam - Cervix: normal palpation and Other cervical findings present (Bled with Pap) Bimanual exam- vagina & uterus: normal bimanual exam, normal palpation, uterine size normal, bladder normal to palpation, normal palpation and non-tender Bimanual Exam- Adnexa, other: no masses Skin General skin exam: no rashes or lesions noted Rashes: no rashes Neuro General: patient oriented x3 Cognition (Neuro): normal cognition Extrem General: Yes normal to inspection Psych Attitude: cooperative Thought process: Normal thought process present Assessment & Plan Assessment & Plan (1) Encounter for well woman exam with routine gynecological exam: Code(s): Z01.419 - Encounter for gynecological examination (general) (routine) without abnormal findings Category: Medical Plan Discussed: Current recommendations for pap smears per ASCCP guidelines. Breast awareness, periodic self breast exams and yearly mammogram. Maintain a healthy lifestyle, well balanced diet including Calcium 1,200 mg and Vitamin D 600 IU daily, and routine exercise. Exercise handout and calcium food list provided. Replens moisturizer and vaginal lubrication. Contact the office with any postmenopausal bleeding. Patient verbalizes understanding and agrees to the plan of care. She was given opportunity to ask questions and all questions were answered to the best of my ability. RTO in 1 year for annual spot worker exam. This note is constructed using voice recognition software. While every effort has been made to ensure accuracy, jordan worker errors may have been included. Orders: Orders HPV High risk Today Z01.419 - Encounter for gynecological examination (general) (routine) without abnormal findings Pap Smear Today Z01.419 - Encounter for gynecological examination (general) (routine) without abnormal findings Coding Level of Care Code New Pt Prev Care >65yr (87891) Diagnoses Encounter for well woman exam with routine gynecological exam Z01.419
[2024-10-24 13:18] VITALS: BP 136/74; BMI 22.6
--- OUTSIDE RECORDS SUMMARY | 2024-10-24 15:51 | XMS_ITS ---
Author Organization [facility] Address [address] [place] [address] Care Team Providers Care Correctional Cook Name Role Phone Inderjit SMITH, [place] Primary Care Provider Unava ilable Elie Aguilar [phone] REASON FOR VISIT biopsy results Encounters Encounter Location Date Provider Diagnosis [facility] [address] [place] [address] 06/21/2023 Elie Aguilar Plan Of Treatment No Information Progress Notes * RAYOMARYELLENB:1955 (67 yo F)Acc No.[id number]:06/21/2023 Patient:?DANGELO ESCUDERO :1955???Age:67 Y???Sex:Female Address:[facility], [address], [place] [address] * true * Date:? Generated for Printi ng/Enrique/eTransmitting on:?10/24/2024 03:51 PM EDT
--- OUTSIDE RECORDS SUMMARY | 2024-10-24 15:51 | XMS_ITS | Patient Health Record ---
Author Organization [facility] Address [address] [place] [address] Care Team Providers Care Sales Operations Analyst Name Role Phone Inderjit SMITH, [place] Primary Care Provider Elie Riggins [phone] Allergies Allergen (clinical drug ingredient) Drug/Non Drug Allergy documented on EMR Reaction Allergy Type Onset Date Status pitavastatin Livalo Unknown Drug Allergy Acti ve ezetimibe Zetia Unknown Drug Allergy Active atorvastatin Lipitor Unknown Drug Allergy Acti ve rosuvastatin Crestor Unknown Drug Allergy Acti ve sulfamethoxazole / trimethoprim Bactrim Unknown Drug Allergy Active simvastatin Simvastatin Unknown Drug Allergy Act jesse colesevelam Colesevelam Unknown Drug Allergy Act jesse Reason For Referral No Information Medications Medication SIG (Take, Route, Frequency, Duration) Notes Start Date End Date Status Advil Not-Taking CoQ-10 Active Vitamin C Active Vitamin D3 Active Centrum Silver Activ e Levothyroxine Sodium 88 MCG Oral for 90 Active Social History Tobacco Use: Social History Observation Description Date Details (start date - stop date) Never Smoker NA - NA Tobacco Use/Smoking Question Answer Notes Patient is a nonsmoker Alcohol Screen Question Answer Notes Did you have a drink containing alcohol in the p ast year? No Points 0 Interpretation Negative Problems Problem Type SNOMED Code ICD Code Onset Dates Problem Status W/U Status Risk Notes Problem 761336540 Colon cancer screening (Z12.11) Active confirmed Problem Diverticular disease of colon (742325754) Diverticulosis of large intestine without perforation or abscess without bleeding (K57.30) Active confirmed Problem 458113302256237 Preprocedural examination (Z01.818) Active confirmed Plan Of Treatment Future Test Test Name Order Date COLONOSCOPY 03/08/2023 Insurance Providers Payer Name Payer Address Payer Phone Subscriber Number Group Number Insured Name Patient Relationship to Insured Coverage Start Date Coverage End Date [facility] [address] [facility] [place], [place] [phone] [id number] DANGELO ESCUDERO Self - patient is the insured Medical (General) History Medical History History ICD Code Denies [place],DM,CVA,Lung disease,renal dise ase Hypercholesterolemia Hypothyroidism Osteopenia/osteoporosis Screening colonoscopy in 04/2011 with on ly hyperplastic polyps Surgical History Surgery Date(Month/Year) Lumbar disc surgery
--- OUTSIDE RECORDS SUMMARY | 2024-10-24 15:51 | XMS_ITS ---
Author Organization [facility] Address [address] [place] [address] Care Team Providers Care Tree Trimming Supervisor Name Role Phone Inderjit SMITH, [place] Primary Care Provider Unava ilElie Combs Unavailable [phone] REASON FOR VISIT screening Problems Problem Type SNOMED Code ICD Code Onset Dates Problem Status W/U Status Risk Notes Problem Diverticular disease of colon (510123136) Diverticulosis of large intestine without perforation or abscess without bleeding (K57.30) Active confirmed Encounters Encounter Location Date Provider Diagnosis [facility] Outpatient [address] [place] [id number] 05/29/2023 Elie Aguilar Encounter for scre ening colonoscopy Z12.11 ; Colon polyps K63.5 ; Diverticulosis of large intestine without perforation or abscess without bleeding K57.30 and Other hemorrhoids K64.8 Assessments Encounter Date Diagnosis (ICD Code) Assessment Notes Treatment Notes Treatment Clinical Notes Section Notes 05/29/2023 Encounter for screening colonoscopy (ICD-10 - Z12.11) 05/29/2023 Colon polyps (ICD-10 - K63.5) 05/29/2023 Diverticulosis of large intestine without perforation or abscess without bleeding (ICD-10 - K57.30) 05/29/2023 Other hemorrhoids (ICD-10 - K64.8) Plan Of Treatment No Information Progress Notes * YANET ESCUDERO:1955 (69 yo F)Acc No.[id number]:05/29/2023 COLON WITH MAC Patient:?DANGELO ESCUDERO Provider:?Elie Aguilar MD :1955???Age:67 Y???Sex:Female D ate:05/29/2023 [facility] Pcp:Seven Jansen MD Subjective: * Chief Complaints: * ???1. Screening. * Medical History:? Objective: * Vitals:? Assessment: * Assessment: 1.?Encounter for screening c olonoscopy - Z12.11 (Primary)???2.?Colon polyps - K63.5???3.?Diverticulosis of large intestine without perforation or abscess without bleeding - K57.30???4.?Other hemorrhoids - K64.8??? Plan: * Treatment: * Procedure Codes:?02412 LESIO N REMOVAL COLONOSCOPY, Modifiers: 33 , 32384 COLONOSCOPY AND BIOPSY, Modifiers: 59 , 33 * * The named appointment provid er may or may not be the originator of this progress note, and it is not deemed complete until electronically signed by the appointment provider. Sign off status: Pending * Provider:?Elie Aguilar MD Date:? 023 Generated for Rupert mix/Enrique/eTransmitting on:?10/24/2024 03:51 PM EDT
== END 2024-10-24 13:58 | disposition home or self-care (01) ==
LOC: HO.HWS 13:09
PROVIDERS: PCP Internal Medicine; Visit Provider Advanced Practice Midwife
DX: Z01.419 Encounter for gynecological examination (general) (routine) without abnormal findings (principal)
CPT/HCPCS: 99387; 99459

== ENCOUNTER 2024-10-30 08:28 | Outpatient (REF) | payer OTHER, SELFPAY ==
--- OUTSIDE RECORDS SUMMARY | 2024-10-30 08:41 | XMS_ITS | Patient Health Record ---
Author Organization [facility] Address [address] [place] [address] Care Team Providers Care Process Tech Name Role Phone Inderjit SMITH, [place] Primary Care Provider Elie Riggins [phone] Allergies Allergen (clinical drug ingredient) Drug/Non Drug [...] Problem Status W/U Status Risk Notes Problem 215422453 Colon cancer screening (Z12.11) Active confirmed Problem Diverticular disease of colon (271085873) Diverticulosis of large intestine without perforation or abscess without bleeding (K57.30) Active confirmed Problem 226024633748746 Preprocedural examination (Z01.818) Active confirmed Plan Of Treatment Future Test Test Name Order Date COLONOSCOPY 03/08/2023 Insurance Providers Payer Name Payer Address Payer Phone Subscriber Number Group Number Insured Name Patient Relationship to Insured Coverage Start Date Coverage End Date [facility] [address] [facility] [place], [place] [phone] [id number] DANGELO ESCUDERO Self - patient is the insured Medical (General) History Medical History History ICD Code Denies [place],DM,CVA,Lung disease,renal dise ase Hypercholesterolemia Hypothyroidism Osteopenia/osteoporosis Screening colonoscopy in 04/2011 with on ly hyperplastic polyps Surgical History Surgery Date(Month/Year) Lumbar disc surgery
--- OUTSIDE RECORDS SUMMARY | 2024-10-30 08:42 | XMS_ITS ---
Author Organization [facility] Address [address] [place] [address] Care Team Providers Care Lumber Cutter Name Role Phone Inderjit SMITH, [place] Primary Care Provider Unava ilable Elie Aguilar [phone] REASON FOR VISIT biopsy results Encounters Encounter Location Date Provider Diagnosis [facility] [address] [place] [address] 06/21/2023 Elie Aguilar Plan Of Treatment No Information Progress Notes * ESCUDERORAYOMARYELLENB:1955 (67 yo F)Acc No.[id number]:06/21/2023 Patient:?DANGELO ESCUDERO :1955???Age:67 Y???Sex:Female Address:[facility] [address], [place] [address] * true * Date:? Generated for Printi ng/Louieg/eTransmitting on:?10/30/2024 08:41 AM EDT
--- OUTSIDE RECORDS SUMMARY | 2024-10-30 08:42 | XMS_ITS ---
Author Organization [facility] Address [address] [place] [phone] Care Team Providers Care Wind Energy Mechanic Name Role Phone Inderjit SMITH, [place] Primary Care Provider Unava ilElie Combs Unavailable [phone] REASON FOR VISIT screening Problems Problem Type SNOMED Code ICD Code Onset Dates Problem Status W/U Status Risk Notes Problem Diverticular disease of colon (003771140) Diverticulosis of large intestine without perforation or abscess without bleeding (K57.30) Active confirmed Encounters Encounter Location Date Provider Diagnosis [facility] Outpatient [address] [place], [place] [id number] 05/29/2023 Elie Aguilar Encounter for scre ening [...] Notes * YANET ESCUDERO:1955 (69 yo F)Acc No.[id number]:05/29/2023 COLON WITH MAC Patient:?DANGELO ESCUDERO Provider:?Elie Aguilar MD :1955???Age:67 Y???Sex:Female D ate:05/29/2023 [facility] Pcp:Seven Jansen MD Subjective: * Chief Complaints: * ???1. Screening. * Medical History:? Objective: * Vitals:? Assessment: * Assessment: 1.?Encounter for screening c olonoscopy - Z12.11 (Primary)???2.?Colon polyps - K63.5???3.?Diverticulosis of large intestine without perforation or abscess without bleeding - K57.30???4.?Other hemorrhoids - K64.8??? Plan: * Treatment: * Procedure Codes:?65707 LESIO N REMOVAL COLONOSCOPY, Modifiers: 33 , 04907 COLONOSCOPY AND BIOPSY, Modifiers: 59 , 33 * * The named appointment provid er may or may not be the originator of this progress note, and it is not deemed complete until electronically signed by the appointment provider. Sign off status: Pending * Provider:?Elie Aguilar MD Date:? 023 Generated for Rupert mix/Enrique/eTransmitting on:?10/30/2024 08:41 AM EDT
[2024-10-30 08:46] LABS: MANUAL DIFF FLAG NO
[2024-10-30 09:29] LABS: Eosinophils Absolute Auto 0.2 X10*3/uL (0.0-0.4); Eosinophils Percent Auto 3.6 % (0-4); Hematocrit 40.5 % (37.0-47.0); Hemoglobin 13.3 g/dl (12.0-16.0); Imm Gran Abs Auto 0.01 X10*3/uL (0.00-0.03); Imm Gran Pct Auto 0.2 % (0.0-0.4); Lymphocytes Absolute Auto 1.5 X10*3/uL (1.2-4.9); Mean Corpuscular HGB Conc 32.8 g/dl (31.0-35.0); Mean Corpuscular Hemoglobin 29.4 pg (27.0-33.0); Mean Corpuscular Volume 89.4 fL (80.0-98.0); Monocytes Absolute Auto 0.5 X10*3/uL (0.1-1.2); Monocytes Percent Auto 10.8 % (2-11); Neutrophils Absolute Auto 2.1 x10*3/uL (2.0-8.3); Neutrophils Percent Auto 49.4 % (45-73); Platelet Count 209 X10*3/uL (160-400); Red Blood Count 4.53 X10*6/uL (4.20-5.50); Red Cell Distribution Width 12.9 % (11.0-16.0); White Blood Count 4.2 X10*3/uL (4.8-10.8)
[2024-10-30 10:18] LABS: Alanine Aminotransferase 18 U/L (0-31); Alkaline Phosphatase 73 U/L (39-117); Anion Gap 9 (12-20); Aspartate Amino Transferase 20 U/L (5-31); Bilirubin Total 0.5 mg/dL (0.0-1.0); Blood Urea Nitrogen 14 mg/dL (9-16); Calcium 9.1 mg/dL (8.4-10.2); Carbon Dioxide 26 mmol/L (22-29); Chloride 103 mmol/L (96-108); Cholesterol 182 mg/dL (<200); Estimated Glomerular Filt Rate > 60; Glucose Fasting 94 mg/dL (60-99); HDL Cholesterol 50 mg/dL (>40); LDL Cholesterol Calculated 115 mg/dL (<100); Potassium 4.3 mmol/L (3.3-5.1); Sodium 134 mmol/L (135-145); Total Protein 6.6 g/dL (6.5-8.0); Triglycerides 86 mg/dL (<150)
[2024-10-30 10:26] LABS: Free T4 (Free Thyroxine) 1.56 ng/dL (0.71-1.85); Thyroid Stimulating Hormone 0.07 uIU/mL (0.32-4.0)
[2024-10-30 11:49] LABS: Appearance Urine Clear; Color Urine Yellow; Glucose Urine UA Negative (Negative); Leukocyte Esterase Urine Negative (Negative); Nitrite Urine Negative (Negative); Specific Gravity - Urine <= 1.005 (1.005-1.025); Urine Blood Negative (Negative); Urine Ketones Negative (Negative); Urine Protein Negative (Neg-Trace)
== END 2024-10-30 08:29 | disposition home or self-care (01) ==
LOC: HO.LAB 08:28
PROVIDERS: PCP Internal Medicine; Visit Provider Internal Medicine
DX: E78.00 Pure hypercholesterolemia, unspecified (principal); D64.9 Anemia, unspecified; E03.9 Hypothyroidism, unspecified; R30.0 Dysuria
CPT/HCPCS: 36415; 80053; 80061; 81003; 84439; 84443; 85025

== ENCOUNTER 2024-11-06 08:45 | Outpatient (AMB) | payer OTHER, SELFPAY ==
[2024-11-06 08:48] VITALS: BP 118/68; PULSE 72; O2SAT 99; BMI 22.7
--- NOTE | 2024-11-06 08:48 | A.OFFPC_ITS ---
Vital Signs 11/06/24 08:48 Height 5 ft 5 in Weight 136 lb 6 oz BMI 22.7 BP 118/68 Blood Pressure Location Lt brachial Position Sitting Pulse 72 Pulse Source Pulse Oximeter Pulse Oximetry (%) 99 Oxygen Delivery Method Room Air Intake Visit Reasons: hyperlipidemia, osteoporosis Telecommunications Network Planner Required: No Accompanied by: Self / Same As Patient Allergies pitavastatin [Livalo] Allergy (Intermediate, Verified 11/06/24 09:11) myalgia/weakness Sulfa (Sulfonamide Antibiotics) Allergy (Intermediate, Verified 11/06/24 09:11) hives sulfamethoxazole [From Bactrim] Allergy (Intermediate, Verified 11/06/24 09:11) Itching trimethoprim [From Bactrim] Allergy (Intermediate, Verified 11/06/24 09:11) Itching colesevelam Adverse Reaction (Severe, Verified 11/06/24 09:11) myalgia/weakness ezetimibe [Zetia] Adverse Reaction (Intermediate, Verified 11/06/24 09:11) myalgia, weakness Fcstfjq-NQF-GeY Reductase Inhibitor Adverse Reaction (Intermediate, Verified 11/06/24 09:11) myalgia/weakness Medication List - Last Reconciled 11/06/24 by Seven Jansen MD ascorbate calcium (vitamin C) 500 mg PO DAILY cholecalciferol (vitamin D3) 25 mcg PO DAILY levothyroxine 88 mcg PO DAILY Tobacco use date assessed: 11/06/24 Fall risk assessment: No Falls in past year Last assessed Fall Risk: 11/06/24 Dental Screening Dental Screen Date: 11/06/24 Did you have a dental visit in the last 12 months?: Yes Did you have a dental problem in the last 6 months where you did not have access to dental care?: No Was dental information given to patient?: Patient has dentist HPI hyperlipidemia, osteoporosis HPI Details Patient comes in today for her follow up visit States that she currently feels okay She denies any headaches or dizziness Denies any chest pains, no SOB No nausea/vomiting, no abdominal pain No change in bowel habits noted She had her follow up labs done last week - to discuss her results [facility] Medical History Osteoporosis Lumbar degenerative disc disease Acquired hypothyroidism Pure hypercholesterolemia Surgical History H/O colonoscopy History of lumbar surgery Family History Father GI problem Mother Hypothyroid Maternal Aunt Breast cancer Maternal Grandmother No problems noted. Maternal Grandfather No problems noted. Paternal Grandmother No problems noted. Paternal Grandfather No problems noted. 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 1. Little interest or pleasure in doing things: not at all 2. Feeling down, depressed, or hopeless: not at all 3. Trouble falling or staying asleep, or sleeping too much: not at all 4. Feeling tired or having little energy: not at all 5. Poor appetite or overeating: not at all 6. Feeling bad about yourself - or that you are a failure or have let yourself or your family down: not at all 7. Trouble concentrating on things, such as reading the newspaper or watching television: not at all 8. Moving or speaking so slowly that other people could have noticed. Or the opposite - being so fidgety or restless that you have been moving around a lot more than usual: not at all 9. Thoughts that you would be better off or of hurting yourself in some way: not at all Total score: 0 Depression Screening Interpretation: Negative Depression Screening Done: Yes [address]2752 - PHQ-9 Billing: Yes Source: Developed by Drs. Elie Lowe, Elizabeth Will, Terry Telles and colleagues, with an educational maria g from [employer]. Thrive Questionnaire Date Thrive assessed: 11/06/24 I am a: Patient What is your living situation today?: I have a steady place to live Within the past 12 months, did the food you bought not last and you didn't have the money to get more?: Never true Within the past 12 months, did you worry whether your food would run out before you got money to buy more?: Never true Do you have trouble paying for medicines?: No Do you have trouble getting transportation to medical appointments?: No Do you have trouble paying your heating and electricity bill?: No Do you have trouble taking care of your child, family member or friend?: No Do you have trouble with day-to-day activities such as bathing, preparing meals, shopping, managing finances, etc.?: No Are you currently unemployed and looking for a job?: No Are you interested in more education?: No Please select the resources that you would like help with: None Currently or been in a relationship where the following occur: No concerns reported THRIVE Score: 0 AUDIT C Alcohol Use Questionnaire (AUDIT-C) 1. How often do you have a drink containing alcohol?: Monthly or less 2. How many drinks containing alcohol do you have on a typical day when you are drinking?: 1 or 2 3. How often do you have six or more drinks on one occasion?: Never Total Score: 1 Score Reviewed/Action Taken: Yes JUSTA-7 AMB Questionnaire JUSTA-7 Date JUSTA - 7 assessed: 11/06/24 Feeling nervous, anxious, or on edge: 0 = Not at all Not being able to stop or control worryin = Not at all Worrying too much about different things: 0 = Not at all Trouble relaxin = Not at all Being so restless that it is hard to sit still: 0 = Not at all Becoming easily annoyed or irritable: 0 = Not at all Feeling afraid as if something awful might happen: 0 = Not at all Total JUSTA-7 score (0-4 normal; 5-9 mild; 10-14 moderate; 15-21 severe): 0 Source: Developed by Drs. Elie Lowe, Elizabeth Will, Terry Telles and colleagues, with an educational maria g from [employer]. Review of Systems Const Denies chills, Denies fatigue, Denies fever(s) and Denies headache(s) ENT Denies dysphagia, Denies dizziness, Denies otalgia, Denies headache(s), Denies neck pain, Denies odynophagia and Denies sore throat Card Denies chest pain, Denies palpitations and Denies dyspnea Resp Denies chest congestion, Denies cough and Denies dyspnea GI Denies abdominal pain, Denies constipation, Denies dysphagia, Denies heartburn, Denies diarrhea, Denies nausea, Denies odynophagia and Denies vomiting Denies difficulty voiding, Denies nocturia, Denies dysuria and Denies urinary urgency Musc Reports back pain (mild, on and off) and Denies neck pain Skin/Breast Denies rash Neuro Denies dizziness and Denies headache(s) Endo Denies fatigue and Denies palpitations Physical exam (Primary Care) Vital Signs: Last Vital Signs Pulse 72 11/06/24 08:48 BP 118/68 11/06/24 08:48 Pulse Ox 99 11/06/24 08:48 Oxygen Delivery Method Room Air 11/06/24 08:48 BMI result Body Mass Index 22.7 Tobacco/Smoking Status: Tobacco use Status Tobacco use date assessed 11/06/24 11/06/24 08:55 Patient Tobacco Use Status Never used Tobacco 11/06/24 08:55 e-Cigarette/Vaping Use Never Used 11/06/24 08:55 PHQ-9: PHQ-9 Score PHQ-9: Total score 0 11/06/24 08:55 Depression Screening Interpretation: Negative Thrive Assessment: Date of Thrive Assessment Date Thrive assessed 11/06/24 11/06/24 08:55 Currently or been in a relationship where the following occur: No concerns reported Const General: no acute distress and alert HENMT Ears: TM's normal bilaterally and EAC's normal Throat: Yes posterior oropharynx normal and Yes tonsils normal (no TP congestion) Neck Neck: Yes supple and No lymphadenopathy Thyroid: Thyroid normal Resp Auscultation: clear to auscultation bilaterally, no rales and no wheezes Cardio Rate: regular rate Rhythm: regular rhythm Heart sounds: no murmurs GI Palpation (GI): Soft to palpation and nontender Auscultation: normal bowel sounds General: Yes no CVA tenderness Back/Spine/Pelvis Back: no CVA tenderness Thoracic/Lumbar Spine: lumbar spinal tenderness Skin Rashes: no rashes Extrem General: Yes no clubbing, cyanosis or edema Results Reviewed Results Reviewed: Laboratory Tests 10/31/23 10/30/2410/30/25 07:52 08:44 10:25 WBC 4.2 L Hgb 13.3 Hct 40.5 Plt Count 209 Sodium 134 L Potassium 4.3 Creatinine 0.71 Estimated GFR > 60 Fasting Glucose 94 Calcium 9.1 D AST 20 ALT 18 Triglycerides 86 Cholesterol 182 LDL Cholesterol, Calc 115 H HDL Cholesterol 50 Vitamin B12 683 TSH 0.07 L Free T4 1.56 Ur Specific [place] <= 1.005 Urine Protein Negative Urine Glucose (UA) Negative Urine Blood Negative Urine Nitrite Negative Ur Leukocyte Esterase Negative Coding Level of Care Code Est Pt Level 4 (93185) Diagnoses Pure hypercholesterolemia E78.00 Acquired hypothyroidism E03.9 Age-related osteoporosis without current pathological fracture M81.0 Osteoporosis type: age-related Presence of current pathological fracture: without current pathological fracture Degeneration of intervertebral disc of lumbar region with discogenic back pain M51.360 Disc-related pain type: discogenic back pain only Additional Codes PHQ-9 - 70820 - PHQ-9 Billing: Yes ([id number]) Assessment & Plan Assessment & Plan (1) Pure hypercholesterolemia: Code(s): E78.00 - Pure hypercholesterolemia, unspecified Category: Medical Plan: Results of her labs done last week reviewed and discussed with patient - advised patient that her cholesterol levels have improved significantly from previous with just modifying her diet alone Reinforced low cholesterol diet She has NOT been able to tolerate all of the available statins as well as Ezetimibe and Colesevelam due to side effects Have discussed with her about the new PCSK9 inhibitors - patient states that she has thought about them but as they are fairly new, she has reservations about them and is concerned about potential side effects that may have not been reported yet Will recheck her labs and fasting lipids in 6 months for follow up (2) Acquired hypothyroidism: Code(s): E03.9 - Hypothyroidism, unspecified Category: Medical Plan: Her TSH is suppressed but her free T4 is normal on her recent labs Continue Levothyroxine 88 mcg QD Will continue to monitor her TFTs regularly She was last seen by Dr. Hassan over a year ago and was advised to just continue seeing her PCP regularly and to see them (endocrinology) only as needed for any acute thyroid issues (3) Osteoporosis: Code(s): M81.0 - Age-related osteoporosis without current pathological fracture Category: Medical Qualifiers: Osteoporosis type: age-related Presence of current pathological fracture: without current pathological fracture Qualified Code(s): M81.0 - Age- related osteoporosis without current pathological fracture Plan: BMD done in 12/2018 showed (+) osteopenia but her repeat BMD done in September 2022 revealed (+) osteoporosis based on the lowest T-score value of -2.5 in the femoral neck applying the WHO criteria Her most recent BMD in the AP spine has declined 12.1% from previous; BMD in the left femur showed a 5.5% decrease from previous She is encouraged to continue her daily oral calcium and Vitamin D supplements and to exercise regularly and stay active but have again reinforced fall precautions She was also recommended to start on Rx for her osteoporosis but she prefers NOT to and would like to get her BMD repeated in 2 years to see where she will be at the time - this will be ordered at her next appointment in the fall of 2024 She is now following up with Dr. Hassan for her osteoporosis (4) Lumbar degenerative disc disease: Code(s): M51.36 - Other intervertebral disc degeneration, lumbar region Category: Medical Qualifiers: Disc-related pain type: discogenic back pain only Qualified Code(s): M51.360 - Other intervertebral disc degeneration, lumbar region with discogenic back pain only Plan: Reinforced activity and weight-lifting restrictions to help minimize her low back pain Plan To return in 6 months for her next annual physical examination Orders: Orders Free T4 (Free Thyroxine) 6 Months E03.9 - Hypothyroidism, unspecified Thyroid Stimulating Hormone 6 Months E03.9 - Hypothyroidism, unspecified Vitamin D 25-OH Total 6 Months E55.9 - Vitamin D deficiency, unspecified Complete Blood Count Auto Diff 6 Months D64.9 - Anemia, unspecified Comprehensive [place]. Panel Fast 6 Months E78.00 - Pure hypercholesterolemia, unspecified Lipid Panel 6 Months E78.00 - Pure hypercholesterolemia, unspecified UA CC w/rflx Micro + Cult 6 Months R30.0 - Dysuria
--- OUTSIDE RECORDS SUMMARY | 2024-11-06 09:14 | XMS_ITS ---
Author Organization [facility] Address [address] [place] [address] Care Team Providers Care Supervisor Cartography Name Role Phone Inderjit SMITH, [place] Primary Care Provider Unava ilable Elie Aguilar [phone] REASON FOR VISIT biopsy results Encounters Encounter Location Date Provider Diagnosis [facility] [address] [place] [address] 06/21/2023 Elie Aguilar Plan Of Treatment No Information Progress Notes * RAYOMARYELLENB:1955 (67 yo F)Acc No.[id number]:06/21/2023 Patient:?DANGELO ESCUDERO :1955???Age:67 Y???Sex:Female Address:[facility] [address], [place] [address] * true * Date:? Generated for Printi ng/Louieg/eTransmitting on:?11/06/2024 09:14 AM EDT
--- OUTSIDE RECORDS SUMMARY | 2024-11-06 09:14 | XMS_ITS ---
Author Organization [facility] Address [address] [place] [address] Care Team Providers Care Lead Project Manager Name Role Phone Inderjit SMITH, [place] Primary Care Provider Unava ilElie Combs Unavailable [phone] REASON FOR VISIT screening Problems Problem Type SNOMED Code ICD Code Onset Dates Problem Status W/U Status Risk Notes Problem Diverticular disease of colon (164530743) Diverticulosis of large intestine without perforation or abscess without bleeding (K57.30) Active confirmed Encounters Encounter Location Date Provider Diagnosis [facility] Outpatient [address] [place] [phone] 05/29/2023 Elie Aguilar Encounter for scre ening [...] Notes * YANET ESCUDERO:1955 (69 yo F)Acc No.[id number]:05/29/2023 COLON WITH MAC Patient:?DANGELO ESCUDERO Provider:?Elie Aguilar MD :1955???Age:67 Y???Sex:Female D ate:05/29/2023 Address:[address] [facility] Pcp:Seven Jansen MD Subjective: * Chief Complaints: * ???1. Screening. * Medical History:? Objective: * Vitals:? Assessment: * Assessment: 1.?Encounter for screening c olonoscopy - Z12.11 (Primary)???2.?Colon polyps - K63.5???3.?Diverticulosis of large intestine without perforation or abscess without bleeding - K57.30???4.?Other hemorrhoids - K64.8??? Plan: * Treatment: * Procedure Codes:?15354 LESIO N REMOVAL COLONOSCOPY, Modifiers: 33 , 65227 COLONOSCOPY AND BIOPSY, Modifiers: 59 , 33 * * The named appointment provid er may or may not be the originator of this progress note, and it is not deemed complete until electronically signed by the appointment provider. Sign off status: Pending * Provider:?Elie Aguilar MD Date:? 023 Generated for Rupert mix/Enrique/eTransmitting on:?11/06/2024 09:14 AM EDT
--- OUTSIDE RECORDS SUMMARY | 2024-11-06 09:14 | XMS_ITS | Patient Health Record ---
Author Organization [facility] Address [address] [place] [address] Care Team Providers Care Media Services Specialist Name Role Phone Inderjit SMITH, [place] Primary Care Provider Elie Riggins [phone] Allergies Allergen (clinical drug ingredient) Drug/Non Drug [...] Problem Status W/U Status Risk Notes Problem 100331666 Colon cancer screening (Z12.11) Active confirmed Problem Diverticular disease of colon (697878159) Diverticulosis of large intestine without perforation or abscess without bleeding (K57.30) Active confirmed Problem 543963971077787 Preprocedural examination (Z01.818) Active confirmed Plan Of Treatment Future Test Test Name Order Date COLONOSCOPY 03/08/2023 Insurance Providers Payer Name Payer Address Payer Phone Subscriber Number Group Number Insured Name Patient Relationship to Insured Coverage Start Date Coverage End Date [facility] [address] [facility] [place], [place] [phone] [id number] DANGELO ESCUDERO Self - patient is the insured Medical (General) History Medical History History ICD Code Denies NE,DM,CVA,Lung disease,renal dise ase Hypercholesterolemia Hypothyroidism Osteopenia/osteoporosis Screening colonoscopy in 04/2011 with on ly hyperplastic polyps Surgical History Surgery Date(Month/Year) Lumbar disc surgery
== END 2024-11-06 09:30 | disposition home or self-care (01) ==
LOC: HO.HMCH 08:45
PROVIDERS: PCP Internal Medicine; Visit Provider Internal Medicine
DX: E78.00 Pure hypercholesterolemia, unspecified (principal); E03.9 Hypothyroidism, unspecified; M81.0 Age-related osteoporosis without current pathological fracture; M51.360 Other intervertebral disc degeneration, lumbar region with discogenic back pain only

== ENCOUNTER → 2024-11-06 08:45 | Outpatient (BNVA) | payer OTHER, SELFPAY | PROVIDERS: PCP Internal Medicine; Visit Provider Internal Medicine | DX: E78.00 Pure hypercholesterolemia, unspecified (principal); E03.9 Hypothyroidism, unspecified; M81.0 Age-related osteoporosis without current pathological fracture; M51.360 Other intervertebral disc degeneration, lumbar region with discogenic back pain only; Z79.899 Other long term (current) drug therapy | CPT/HCPCS: 96127 ==

== ENCOUNTER 2025-04-12 07:59 | Outpatient (REF) | payer OTHER, SELFPAY ==
--- OUTSIDE RECORDS SUMMARY | 2025-04-12 08:03 | XMS_ITS | Patient Health Record ---
Author Organization [facility] Address [address] [place] [address] Care Team Providers Care Poiser Name Role Phone Inderjit SMITH, [place] Primary Care Provider Elie Riggins [phone] Allergies Allergen (clinical drug ingredient) Drug/Non Drug Allergy documented on EMR Reaction Allergy Type Onset Date Status ezetimibe Zetia Unknown Drug Allergy Active atorvastatin Lipitor Unknown Drug Allergy Acti ve rosuvastatin Crestor Unknown Drug Allergy Acti ve sulfamethoxazole / trimethoprim Bactrim Unknown Drug Allergy Active simvastatin Simvastatin Unknown Drug Allergy Act jesse colesevelam Colesevelam Unknown Drug Allergy Act jesse pitavastatin Livalo Unknown Drug Allergy Acti ve Reason For Referral No Information Medications Medication [...] Problem Status W/U Status Risk Notes Problem 666821590 Colon cancer screening (Z12.11) Active confirmed Problem Diverticular disease of colon (719248270) Diverticulosis of large intestine without perforation or abscess without bleeding (K57.30) Active confirmed Problem 041632837167133 Preprocedural examination (Z01.818) Active confirmed Plan Of Treatment Future Test Test Name Order Date COLONOSCOPY 03/08/2023 Insurance Providers Payer Name Payer Address Payer Phone Subscriber Number Group Number Insured Name Patient Relationship to Insured Coverage Start Date Coverage End Date [facility] [address] [facility] [place] [phone] [id number] DANGELO ESCUDERO Self - patient is the insured Medical (General) History Medical History History ICD Code Denies DE,DM,CVA,Lung disease,renal dise ase Hypercholesterolemia Hypothyroidism Osteopenia/osteoporosis Screening colonoscopy in 04/2011 with on ly hyperplastic polyps Surgical History Surgery Date(Month/Year) Lumbar disc surgery
--- OUTSIDE RECORDS SUMMARY | 2025-04-12 08:03 | XMS_ITS | Data Portability ---
Author Organization [place] [facility] Address [address] [address] Care Team Providers Care Smudger Name Role Phone LUISA GEOVANNI Primary Care Provider [phone] Assessment Encounter Date Assessment Date Assessment LastModified by Organization Details LastModified Time 04/25/2024 04/25/2024 Impacted cerumen was debrided bilaterally today. Ear blockage improved. She will follow up with us as needed. [email or web address] Not available 04/25/2024 10:23:07 03/12/2025 03/12/2025 Ears were meticulously cleaned bilaterally today with fine pics, curettes and/or suction. Patient is encouraged to avoid Q-tips in their ears relative to packing the wax in tighter. They may use the corner of their bath towel to gently clean the external ears as needed. I also encouraged the use of either mineral oil, baby oil, or sweet oil weekly. I provided instructions which include leaving the affected ear up towards the sid to let the oil soak for 2 to 3 minutes, followed by drainage by turning the head contralaterally . This was recommended for both sides. I provided a second option which was diluted 50/50 peroxide in water to use weekly. The patient follow-up as needed for cerumen removal -RV 6 months with PA team [email or web address] Not available 03/12/2025 08:46:05 Plan of Treatment Reminders Order Date Submit Date Provider Last Modified By Organization Details Last Modified Time Details Appointments Establish ed 15 2025 10:30A M KAYLYN WILLINGHAM PA-C Not available Not available Not available Lab None recorded. Referral None recorded. Procedures None recorded. Surgeries None recorded. Imaging None recorded. Medication Orders None recorded. Patient TargetsNo targets recorded. Patient InstructionsNo instructions recorded. Reason for Referral None Reported. Problems Name Problem SNOMED Code Status Onset Date Resolution Date Notes Provider Name and Address Organization Details Recorded Time Impacted cerumen 77248430 Completed 201402/16/2024 Impacted cerumen; [facility] Treatmen t: establis hed problem (to examiner ): stable or improved Note: Date Diagnose d: 5 12:06 PM (380.4) Not Available [facility] 4 02:26:00 Impacted cerumen of bilatera l ears 01276317226 50815 Active 2015 Impacted cerumen, bilatera l; Note: Date Diagnose d: 6 8:42 AM (H61.23) Efraín Velasquez, [address],[place] [address], [place], [address] , [facility] 5 08:45:49 Sensorin eural hearing loss of bilatera l ears 852386777 Active 2024 Efraín Velasquez, [address],[place] [address], [place], [address] , [facility] 5 08:45:46 Problem Notes None recorded. Medical Equipment None Reported. Allergies Allergen ID Allergen Name Allergen Category Reaction Reaction Severity Criticality Documentation Date Start Date Code Code System Note Provider Name and Address Organization Details Recorded Time 36434 simvastat in medicatio n other Not available Not available 11/28/2023 53544 RxNorm React ion: unkno wn, unspe cifie d;; Not Available [facility] 4 00:57:16 88774 Bactrim medicatio n other Not available Not available 11/28/2023 28519 9 RxNorm React ion: unkno wn, unspe cifie d;; Not Available [facility] 4 00:57:17 07155 rosuvasta tin calcium medicatio n other Not available Not available 11/28/2023 69295 8 RxNorm React ion: unkno wn, unspe cifie d;; Not Available [facility] 4 00:57:18 83456 atorvasta tin medicatio n other Not available Not available 11/28/2023 19502 RxNorm React ion: unkno wn, unspe huie d;; Not Available [facility] 4 00:57:22 Medications Name Sig Start Date Stop Date Status Note LastModified by Organization Details LastModified Time levothyro xine 75 mcg tablet 05/22 completed Medicatio n ID: [id number] Dur ation Value: 90 Brand Name: levothyro xine Send Method: E-Prescri bed Subs Allowed: subs OK Medica tionGener icName: levothyro xine Not Available Not Available Not Available levothyro xine 88 mcg tablet TAKE 1 TABLET BY MOUTH EVERY DAY. STOP 100MCG. active Not Available Not Available No t Available fluticaso ne propionat e 50 mcg/actua tion nasal spray,lazaro pension 05/22 completed Medicatio n ID: [id number] Dur ation Value: 90 Brand Name: fluticaso ne propionat e Send Method: E-Prescri bed Subs Allowed: subs OK Specia l Instructi on: SPRAY ONE SPRAY IN EACH NOSTRIL ONCE DAILY Med icationGe nericName : fluticaso ne propionat e Not Available Not Available Not Available Livalo 2 mg tablet 09/02 completed Medicatio n ID: [id number] Dur ation Value: 90 Reason: () Brand Name: Livalo Se nd Method: E-Prescri bed Subs Allowed: subs OK Medica tionGener icName: Livalo Not Available Not Available Not Available Vitals Date Recorded Body height Body mass index (BMI) Body weight Provider Name and Address Organization Details Last Updated DateTime 03/12/2025 165.1 cm 22.5 kg/m2 28777.97 g Sommer Domínguez [place] - [facility] 03/12/2025 10:43:29 Date Recorded Body height Body mass index (BMI) Body weight Provider Name and Address Organization Details Last Updated DateTime 04/25/2024 165.1 cm 22.5 kg/m2 36902.97 g Sommer Domínguez [place] - [facility] 04/25/2024 10:09:30 Social History None recorded. Functional Status None recorded. Mental Status None recorded. Family History Nothing Reported. Medical History No medical history recorded. Gynecological HistoryNo gynecological history recorded. Obstetrics History GPAL:G 0 P 0 0 0 0 Past Encounters Encounter ID Performer Location Encounter Start Date Encounter Closed Date Diagnosis/Indication Diagnosis SNOMED-CT Code Diagnosis ICD10 Code Diagnosis IMO Codes Diagnosis Note [id number] YONI FERNANDO PA-C [facility] [place] [facility] [address] [place] [address] 04/25/2024 09:49:16 04/25/2024 10:28:10 Impacted cerumen of bilateral ears 5198685771 297126 H61.23 [id number] Efraín Velasquez DO [facility] [address] [address] 03/12/2025 10:07:37 03/12/2025 11:18:30 Sensorineural hearing loss of bilateral ears 321730627 H90.3 10728864 Impacted c erumen of bilateral ears 6682243289 912976 H61.23 379718 Health Concerns Section Related Observation LastModified by Organization Detai ls LastModified Time None Recorded Concern Status LastModified by Organization Details LastModified Time None Recorded Advance Directives Directive None Recorded Payers Insurance Date Sequence Insurance Name Policy Number Policy Barry Covered Member ID Barry Member ID Guarantor Name 03/23/2025 1 [facility] [id number] Nikki Gaines [id number] Nikki Gaines Notes Date Note Type Note Provider Name and Address Organization Details Recorded Time 04/25/2024 text/html ROS as noted in the HPI 68 year old female presents today for cerumen removal.Her right ear has been feeling blocked. THALIA AMANDA MD [address] [place] [address], [phone], [facility] - [facility] 04/25/2024 13:46:46 03/12/2025 text/html ROS as noted in the HPI The patient presents today for cerumen removal. They Endorse aural fullness. They Endorse otaliga AU. They Endorse hearing loss AU. They deny symptoms of vertigo, autophony, and tinnitus. She comes 6 months - 1 year for cleaing Prior Audiogram: None on file Efraín Velasquez, DO [address] [facility], [place], [address], [facility] - [facility] 03/12/2025 11:15:13 OBGyn Episode No OBEpisode recorded.
== END 2025-04-12 08:00 | disposition home or self-care (01) ==
LOC: HO.MAMMO 07:59
PROVIDERS: PCP Internal Medicine; Visit Provider Internal Medicine
DX: Z12.31 Encounter for screening mammogram for malignant neoplasm of breast (principal)
CPT/HCPCS: 77063; 77067

== ENCOUNTER → 2025-04-12 08:15 | Outpatient (BNV) | payer OTHER, SELFPAY | PROVIDERS: PCP Internal Medicine; Visit Provider Internal Medicine | DX: Z12.31 Encounter for screening mammogram for malignant neoplasm of breast (principal) | CPT/HCPCS: 77063; 77067 ==

== ENCOUNTER 2025-07-01 09:40 | Outpatient (REF) | payer OTHER, SELFPAY ==
[2025-07-01 09:54] LABS: MANUAL DIFF FLAG NO
[2025-07-01 10:22] LABS: Hematocrit 41.9 % (37.0-47.0); Hemoglobin 13.7 g/dl (12.0-16.0); Imm Gran Abs Auto 0.01 X10*3/uL (0.00-0.03); Imm Gran Pct Auto 0.2 % (0.0-0.4); Lymphocytes Absolute Auto 1.5 X10*3/uL (1.2-4.9); Mean Corpuscular HGB Conc 32.7 g/dl (31.0-35.0); Mean Corpuscular Hemoglobin 29.5 pg (27.0-33.0); Mean Corpuscular Volume 90.1 fL (80.0-98.0); NRBC Abs Auto 0.000 X10*3/uL (0.0-0.012); NRBC Pct Auto 0.0 /100WBC (0.0-0.2); Platelet Count 230 X10*3/uL (160-400); Red Blood Count 4.65 X10*6/uL (4.20-5.50); White Blood Count 5.7 X10*3/uL (4.8-10.8)
[2025-07-01 10:43] LABS: Appearance Urine Clear; Glucose Urine UA Negative (Negative); PH 7.0 (5.0-9.0); Specific Gravity - Urine <= 1.005 (1.005-1.025)
[2025-07-01 10:54] LABS: Alanine Aminotransferase 21 U/L (0-31); Albumin Level 4.3 g/dL (3.5-5.0); Alkaline Phosphatase 80 U/L (39-117); Anion Gap 13 (12-20); Aspartate Amino Transferase 25 U/L (5-31); Blood Urea Nitrogen 15 mg/dL (9-16); Calcium 9.0 mg/dL (8.4-10.2); Carbon Dioxide 24 mmol/L (22-29); Chloride 99 mmol/L (96-108); Cholesterol 256 mg/dL (<200); Estimated Glomerular Filt Rate > 60; HDL Cholesterol 74 mg/dL (>40); Potassium 4.1 mmol/L (3.3-5.1); Sodium 132 mmol/L (135-145); Total Protein 6.9 g/dL (6.5-8.0); Triglycerides 84 mg/dL (<150)
[2025-07-01 11:15] LABS: Free T4 (Free Thyroxine) 1.23 ng/dL (0.71-1.85); Thyroid Stimulating Hormone 0.39 uIU/mL (0.32-4.0)
--- OUTSIDE RECORDS SUMMARY | 2025-07-01 11:27 | XMS_ITS | Patient Health Record ---
Author Organization [facility] Address [address] [place] [address] Care Team Providers Care Pump House Engineer Name Role Phone Inderjit SMITH, [place] Primary Care Provider Elie Riggins [phone] Allergies Allergen (clinical drug ingredient) Drug/Non Drug Allergy documented on EMR Reaction Allergy Type Onset Date Status sulfamethoxazole / trimethoprim Bactrim Unknown Drug Allergy Active rosuvastatin Crestor Unknown Drug Allergy Acti ve atorvastatin Lipitor Unknown Drug Allergy Acti ve ezetimibe Zetia Unknown Drug Allergy Active pitavastatin Livalo Unknown Drug Allergy Acti ve colesevelam Colesevelam Unknown Drug Allergy Act jesse simvastatin Simvastatin Unknown Drug Allergy Act jesse Reason For Referral No Information Medications Medication SIG (Take, Route, Frequency, Duration) Notes Start Date End Date Status Advil Not-Taking /PRN CoQ-10 Active Vitamin C Active Vitamin D3 Active Centrum Silver Activ e Levothyroxine Sodium 88 MCG Tablet Oral; Duration: 90 Active Social History Tobacco Use: Social History Observation Description Date Details (start date - stop date) Never Smoker NA - NA Social History Drugs/Alcohol: Social Info Question Answer Notes Alcohol Screen Did you have a drink containing alcohol in the past year? 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 Problems Problem Type SNOMED Code ICD Code Onset Dates Problem Status W/U Status Risk Notes Problem Colon cancer screening (787313247) Colon cancer screening (Z12.11) Active confirmed Problem Diverticular disease of colon (857177128) Diverticulosis of large intestine without perforation or abscess without bleeding (K57.30) Active confirmed Problem Preprocedural examination (503910102722705) Preprocedural examination (Z01.818) Active confirmed Plan Of Treatment Future Test Test Name Order Date COLONOSCOPY 03/08/2023 Insurance Providers Payer Name Payer Address Payer Phone Subscriber Number Group Number Insured Name Patient Relationship to Insured Coverage Start Date Coverage End Date [facility] [address] [place] [phone] [id number] DANGELO ESCUDERO Self - patient is the insured Medical (General) History Medical History History ICD Code Denies NM,DM,CVA,Lung disease,renal dise ase Hypercholesterolemia Hypothyroidism Osteopenia/osteoporosis Screening colonoscopy in 04/2011 with on ly hyperplastic polyps Surgical History Surgery Date(Month/Year) Lumbar disc surgery
== END 2025-07-01 09:41 | disposition home or self-care (01) ==
LOC: HO.LAB 09:40
PROVIDERS: PCP Internal Medicine; Visit Provider Internal Medicine
DX: R30.0 Dysuria (principal); E03.9 Hypothyroidism, unspecified; E55.9 Vitamin D deficiency, unspecified; E78.00 Pure hypercholesterolemia, unspecified; D64.9 Anemia, unspecified
CPT/HCPCS: 36415; 80053; 80061; 81003; 82306; 84439; 84443; 85025

== ENCOUNTER 2025-07-08 12:22 | Outpatient (AMB) | payer OTHER, SELFPAY ==
--- NOTE | 2025-07-08 12:38 | A.OFFPC_ITS ---
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: No Accompanied by: Self / Same As Patient Allergies pitavastatin (Livalo) Allergy (Intermediate, Verified 07/08/25 13:02) myalgia/weakness Sulfa (Sulfonamide Antibiotics) Allergy (Intermediate, Verified 07/08/25 13:02) hives sulfamethoxazole (From Bactrim) Allergy (Intermediate, Verified 07/08/25 13:02) Itching trimethoprim (From Bactrim) Allergy (Intermediate, Verified 07/08/25 13:02) Itching colesevelam Adverse Reaction (Severe, Verified 07/08/25 13:02) myalgia/weakness ezetimibe (Zetia) Adverse Reaction (Intermediate, Verified 07/08/25 13:02) myalgia, weakness Ztdvtcb-RAG-BbJ Reductase Inhibitor Adverse Reaction (Intermediate, Verified 07/08/25 13:02) myalgia/weakness Medication List - Last Reconciled 07/08/25 by Seven Jansen MD ascorbate calcium (vitamin C) 500 mg PO DAILY cholecalciferol (vitamin D3) 25 mcg PO DAILY levothyroxine 88 mcg PO DAILY Tobacco use date assessed: 11/06/24 Fall risk assessment: No Falls in past year Last assessed Fall Risk: 07/08/25 Dental Screening Dental Screen Date: 11/06/24 HPI annual exam HPI Details Patient comes in today for her annual physical examination States that she was feeling okay until earlier this morning when she recalls suddenly feeling lightheaded and 'funny' while she was using the bathroom States that she got up then and tried to go to her bed to lie down but did not make it and passed out on her way to the bed States that fortunately, her was there and was able to catch her and placed her on the bed She reportedly came to a few minutes later and states that she immediately knew where she was and what happened so there was apparently no post-ictal confusion, which makes a seizure less likely Patient does not recall experiencing any symptoms of palpitations, skipped beats or tachycardia earlier today and states that she slept fairly well last night She has noticed some vague pressure / aching over the temporal areas of her head since she came to this morning and feels that her sinuses would start draining when she bends over forward with her head She denies any recurrence of her dizziness since this morning Denies any chest pains or SOB/JIMENEZ No nausea/vomiting, no abdominal pain No change in bowel habits noted and she denies any acute urinary symptoms She had her follow up labs done last week - to discuss her results She had her screening colonoscopy last done with Dr. Aguilar a couple of years ago in 05/2023 and her next colonoscopy will be due in 2032 (10 year recall) She had her annual mammogram done a few months ago in March 2025 Her last yearly gynecology exam and pap smear were done in October 2024 BMD last done in 09/2022 showed (+) osteoporosis PFSH Medical History Osteoporosis Lumbar degenerative disc disease Acquired hypothyroidism Pure hypercholesterolemia Surgical History H/O colonoscopy History of lumbar surgery Family History Father GI problem Mother Hypothyroid Maternal Aunt Breast cancer Maternal Grandmother No problems noted. Maternal Grandfather No problems noted. Paternal Grandmother No problems noted. Paternal Grandfather No problems noted. 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 1. Little interest or pleasure in doing things: not at all 2. Feeling down, depressed, or hopeless: not at all 3. Trouble falling or staying asleep, or sleeping too much: not at all 4. Feeling tired or having little energy: not at all 5. Poor appetite or overeating: not at all 6. Feeling bad about yourself - or that you are a failure or have let yourself or your family down: not at all 7. Trouble concentrating on things, such as reading the newspaper or watching television: not at all 8. Moving or speaking so slowly that other people could have noticed. Or the opposite - being so fidgety or restless that you have been moving around a lot more than usual: not at all 9. Thoughts that you would be better off or of hurting yourself in some way: not at all Total score: 0 Depression Screening Interpretation: Negative Depression Screening Done: Yes 77592 - PHQ-9 Billing: Yes Source: Developed by Drs. Elie Lowe, Elizabeth Will, Terry Telles and colleagues, with an educational maria g from [employer]. Thrive Questionnaire Date Thrive assessed: 11/06/24 I am a: Patient What is your living situation today?: I have a steady place to live Within the past 12 months, did the food you bought not last and you didn't have the money to get more?: Never true Within the past 12 months, did you worry whether your food would run out before you got money to buy more?: Never true Do you have trouble paying for medicines?: No Do you have trouble getting transportation to medical appointments?: No Do you have trouble paying your heating and electricity bill?: No Do you have trouble taking care of your child, family member or friend?: No Do you have trouble with day-to-day activities such as bathing, preparing meals, shopping, managing finances, etc.?: No Are you currently unemployed and looking for a job?: No Are you interested in more education?: No Please select the resources that you would like help with: None Currently or been in a relationship where the following occur: No concerns reported THRIVE Score: 0 AUDIT C Alcohol Use Questionnaire (AUDIT-C) 1. How often do you have a drink containing alcohol?: Never 3. How often do you have six or more drinks on one occasion?: Never Total Score: 0 Score Reviewed/Action Taken: Yes JUSTA-7 AMB Questionnaire JUSTA-7 Date JUSTA - 7 assessed: 07/08/25 Feeling nervous, anxious, or on edge: 0 = Not at all Not being able to stop or control worryin = Not at all Worrying too much about different things: 0 = Not at all Trouble relaxin = Not at all Being so restless that it is hard to sit still: 0 = Not at all Becoming easily annoyed or irritable: 0 = Not at all Feeling afraid as if something awful might happen: 0 = Not at all Total JUSTA-7 score (0-4 normal; 5-9 mild; 10-14 moderate; 15-21 severe): 0 Source: Developed by Drs. Elie Lowe, Elizabeth Will, Terry Telles and colleagues, with an educational maria g from [employer]. Review of Systems Const Denies chills, Denies fatigue, Denies fever(s), Reports headache(s) (mild, mostly over the temporal areas (see HPI) ) and Denies malaise Eyes Denies blurry vision, Denies change in vision, Denies irritation and Denies itchy eyes ENT Denies dysphagia, Reports dizziness (occurring earlier this morning prior to her syncopal episode), Denies otalgia, Reports headache(s) (mild, mostly over the temporal areas (see HPI) ), Denies nasal congestion, Denies neck pain, Denies odynophagia, Denies sinus pain and Denies sore throat Card Denies chest pain, Reports syncope (see HPI for details), Denies rapid heart rate, Denies irregular heart rhythm, Denies palpitations and Denies dyspnea Resp Denies chest congestion, Denies cough, Denies dyspnea and Denies wheezing GI Denies abdominal pain, Denies bloating, Denies constipation, Denies dysphagia, Denies heartburn, Denies diarrhea, Denies nausea, Denies odynophagia and Denies vomiting Denies hematuria, Denies difficulty voiding, Denies dysuria, Denies urinary incontinence and Denies urinary urgency Musc Reports back pain (over the lower back - chronic), Denies arthralgias, Denies joint swelling, Denies muscle weakness and Denies neck pain Skin/Breast Denies breast pain, Denies breast mass, Denies change in pigmentation, Denies lesions, Denies rash and Denies unusual bruising Neuro Reports dizziness (occurring earlier this morning prior to her syncopal episode), Reports syncope (see HPI for details), Reports headache(s) (mild, mostly over the temporal areas (see HPI) ) and Denies paresthesias Psych Denies anxiety and Denies depression Endo Denies fatigue and Denies palpitations Tay/Lymph Denies easy bruising Aller/Immun Denies itchy eyes and Denies wheezing Physical exam (Primary Care) Vital Signs: Last Vital Signs Temp 97.7 F 07/08/25 12:39 Pulse 70 07/08/25 12:39 Resp 16 07/08/25 12:39 BP 155/85 H 07/08/25 13:08 Pulse Ox 98 07/08/25 12:39 Oxygen Delivery Method Room Air 07/08/25 12:39 BMI result Body Mass Index 22.6 Tobacco/Smoking Status: Tobacco use Status Tobacco use date assessed 11/06/24 07/08/25 12:38 Patient Tobacco Use Status Never used Tobacco 07/08/25 12:38 e-Cigarette/Vaping Use Never Used 07/08/25 12:38 PHQ-9: PHQ-9 Score PHQ-9: Total score 0 07/08/25 13:08 Depression Screening Interpretation: Negative Thrive Assessment: Date of Thrive Assessment Date Thrive assessed 11/06/24 07/08/25 12:38 Currently or been in a relationship where the following occur: No concerns reported Const General: no acute distress, alert and awake Orientation/consciousness: patient oriented x3 HENMT Head: Yes normocephalic and Yes atraumatic Ears: external ears normal, TM's normal bilaterally and EAC's normal General nose exam: No nasal discharge present Face and sinus: Yes normal facial exam and Yes sinuses nontender Teeth and gingiva: dentition normal Throat: Yes posterior oropharynx normal and Yes tonsils normal (no TP conge stion) Eyes Eyelids: Yes eyelids normal Conjunctivae: conjunctivae normal Pupils: Equal, round and reactive pupils present EOM: EOMs intact bilaterally Neck Neck: Yes supple and No lymphadenopathy Thyroid: Thyroid normal Resp Auscultation: clear to auscultation bilaterally, no rales and no wheezes Cardio Rate: regular rate Rhythm: regular rhythm Heart sounds: no murmurs GI Palpation (GI): Soft to palpation, nontender and No hepatosplenomegaly present Auscultation: normal bowel sounds General: Yes no CVA tenderness Back/Spine/Pelvis Back: no CVA tenderness Thoracic/Lumbar Spine: lumbar spinal tenderness (mild) Skin Lesions: no lesions Rashes: no rashes Neuro General: patient oriented x3, moves all extremities, no focal motor deficits and CN's II-XI intact bilaterally Cranial nerves: Yes Equal, round and reactive pupils present Cognition (Neuro): normal cognition Gait exam (Neuro): Normal gait present Extrem General: Yes no clubbing, cyanosis or edema Results Reviewed Results Reviewed: Laboratory Tests 10/30/24 07/01/25 07/01/25 08:44 09:46 09:52 WBC 5.7 Hgb 13.7 Hct 41.9 Plt Count 230 Sodium 132 L Potassium 4.1 Creatinine 0.68 Estimated GFR > 60 Fasting Glucose 95 Calcium 9.0 AST 25 ALT 21 Triglycerides 86 84 Cholesterol 182 256 H LDL Cholesterol, Calc 115 H 166 H HDL Cholesterol 50 74 25-OH Vitamin D Total 35.0 TSH 0.39 Free T4 1.23 Ur Specific [place] <= 1.005 Urine Protein Negative Urine Glucose (UA) Negative Urine Blood Negative Urine Nitrite Negative Ur Leukocyte Esterase Negative Coding Level of Care Code Est Pt Prev Care >65y(52715) Add On Preventative Visit Only Diagnoses Annual physical exam Z00.00 Syncope, unspecified syncope type R55 Syncope type: unspecified Pure hypercholesterolemia E78.00 Acquired hypothyroidism E03.9 Age-related osteoporosis without current pathological fracture M81.0 Osteoporosis type: age-related Presence of current pathological fracture: without current pathological fracture Degeneration of intervertebral disc of lumbar region with discogenic back pain M51.360 Disc-related pain type: discogenic back pain only Additional Codes PHQ-9 - 94150 - PHQ-9 Billing: Yes ([id number]) Assessment & Plan Assessment & Plan (1) Annual physical exam: Code(s): Z00.00 - Encounter for general adult medical examination without abnormal findings Category: Medical Plan: Results of her labs done last week reviewed and discussed with patient She is up-to-date with her cancer screenings - she had her screening colonoscopy last done with Dr. Aguilar a couple of years ago in 05/2023 and her next colonoscopy will be due in 2032 (10 year recall) She had her annual mammogram done a few months ago in March 2025 Her last yearly gynecology exam and pap smear were done in October 2024 BMD last done in 09/2022 showed (+) osteoporosis (2) Syncope: Code(s): R55 - Syncope and collapse Category: Medical Qualifiers: Syncope type: unspecified Qualified Code(s): R55 - Syncope and collapse Plan: (?) etiology at this time In-office EKG done today showed NSR but patient appears to have a short NV interval at 0.08s, so patient should be urgently screened/checked for preexcitation syndromes that may lead to potential episodes of SVT or tachyarrhythmias Will send patient for echocardiogram and 7-day Holter monitor FELECIA for further evaluation Will also refer her to cardiology for further evaluation and management Will have her get a head CT as well for further evaluation of her syncopal episode earlier today, especially since she is currently still experiencing vague bitemporal headaches since her attack this morning (3) Pure hypercholesterolemia: Code(s): E78.00 - Pure hypercholesterolemia, unspecified Category: Medical Plan: Patient is advised that her cholesterol levels have increased significantly from previous Reinforced low cholesterol diet - she admits to 'slacking off' on her diet over the past few months She has NOT been able to tolerate all of the available statins as well as Ezetimibe and Colesevelam due to side effects We have discussed with her about starting her on the newer PCSK9 inhibitors but patient states that as they are fairly new, she has reservations about them and is concerned about potential side effects that may have not been reported yet so she declined the Rx She was able to get her cholesterol numbers improved significantly earlier this year with diet modification alone and would like to continue to do so for now Will recheck her labs and fasting lipids in 6 months for follow up (4) Acquired hypothyroidism: Code(s): E03.9 - Hypothyroidism, unspecified Category: Medical Plan: Her TFTs were normal on her recent labs Continue Levothyroxine 88 mcg QD Will continue to monitor her TFTs regularly She was last seen by Dr. Hassan over a year ago and was advised to just continue seeing her PCP regularly and to see them (endocrinology) only as needed for any acute thyroid issues (5) Osteoporosis: Code(s): M81.0 - Age-related osteoporosis without current pathological fracture Category: Medical Qualifiers: Osteoporosis type: age-related Presence of current pathological fracture: without current pathological fracture Qualified Code(s): M81.0 - Age- related osteoporosis without current pathological fracture Plan: BMD done in 12/2018 showed (+) osteopenia but her repeat BMD done in September 2022 revealed (+) osteoporosis based on the lowest T-score value of -2.5 in the femoral neck applying the WHO criteria Her most recent BMD in the AP spine has declined 12.1% from previous; BMD in the left femur showed a 5.5% decrease from previous She is again encouraged to continue with daily oral calcium and Vitamin D supplements and to exercise regularly and stay active and have again reinforced fall precautions Discussed that she was fortunate earlier this morning that her was able to catch her when she passed out or so would have potentially suffered some significant injuries or fractures if she would have fallen She was recommended to start on Rx for her osteoporosis before but she declined and would like to get her BMD repeated in 2 years to see where she will be at the time - this was to be ordered at her current appointment but with her recent syncopal episode, we will hold off until this has been properly addressed She is now following up with Dr. Hassan for her osteoporosis (6) Lumbar degenerative disc disease: Code(s): M51.36 - Other intervertebral disc degeneration, lumbar region Category: Medical Qualifiers: Disc-related pain type: discogenic back pain only Qualified Code(s): M51.360 - Other intervertebral disc degeneration, lumbar region with discogenic back pain only Plan: Reinforced activity and weight-lifting restrictions to help minimize her low back pain Plan Follow up in 3 months Orders: Orders CA echo transthoracic complete Today R55 - Syncope and collapse ECG 7 day holter monitor Today R55 - Syncope and collapse CT head/brain wo IV con Today R51.9 - Headache, unspecified, R55 - Syncope and collapse Referrals Cardiology Referral R55 - Syncope and collapse, R94.31 - Abnormal electrocardiogram [ECG] [EKG]
[2025-07-08 12:39] VITALS: BP 128/68; PULSE 70; RESP 16; TEMP 36.5; O2SAT 98; BMI 22.6
[2025-07-08 13:08] VITALS: BP 155/85
--- OUTSIDE RECORDS SUMMARY | 2025-07-08 13:27 | XMS_ITS | Patient Health Record ---
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 Problems Problem Type SNOMED Code ICD Code Onset Dates Problem Status W/U Status Risk Notes Problem Colon cancer screening (782126401) Colon cancer screening (Z12.11) Active confirmed Problem Diverticular disease of colon (595946388) Diverticulosis of large intestine without perforation or abscess without bleeding (K57.30) Active confirmed Problem Preprocedural examination ([id number]) Preprocedural examination (Z01.818) Active confirmed Plan Of Treatment Future Test Test Name Order Date COLONOSCOPY 03/08/2023 Insurance Providers Payer Name Payer Address Payer Phone Subscriber Number Group Number Insured Name Patient Relationship to Insured Coverage Start Date Coverage End Date [facility] [address] [place] [phone] [id number] DANGELO ESCUDERO Self - patient is the insured Medical (General) History Medical History History ICD Code Denies [place],DM,CVA,Lung disease,renal dise ase Hypercholesterolemia Hypothyroidism Osteopenia/osteoporosis Screening colonoscopy in 04/2011 with on ly hyperplastic polyps Surgical History Surgery Date(Month/Year) Lumbar disc surgery
--- OUTSIDE RECORDS SUMMARY | 2025-07-08 13:27 | XMS_ITS | Data Portability ---
Author Organization [place] - [facility], Allergy Address [address] [address] Care Team Providers Care Sandstone Inspector Repairer Name Role Phone LUISA GEOVANNI Primary Care Provider Assessment Encounter Date Assessment Date Assessment LastModified [...] Address Organization Details Recorded Time Impacted cerumen 82234767 Completed 201402/16/2024 Impacted cerumen; [facility] Treatmen t: establis hed problem (to examiner ): stable or improved Note: Date Diagnose d: 5 12:06 PM (380.4) Not Available [facility] 4 02:26:00 Impacted cerumen of bilatera l ears [id number] 17245 Active 2015 Impacted cerumen, bilatera l; Note: Date Diagnose d: 6 8:42 AM (H61.23) Efraín Velasquez, [address],[place] [address], [place], [address] , [facility] 5 08:45:49 Sensorin eural hearing loss of bilatera l ears 309627554 Active 2024 Efraín Velasquez, [address],[place] [address], [place], [address] , [facility] 5 08:45:46 Problem Notes None recorded. Medical Equipment None Reported. Allergies Allergen ID Allergen Name Allergen Category Reaction Reaction Severity Criticality Documentation Date Start Date Code Code System Note Provider Name and Address Organization Details Recorded Time 43932 simvastat in medicatio n other Not available Not available 11/28/2023 25144 RxNorm React ion: unkno wn, unspe cifie d;; Not Available [facility] 4 00:57:16 56704 Bactrim medicatio n other Not available Not available 11/28/2023 81457 9 RxNorm React ion: unkno wn, unspe cifie d;; Not Available [facility] 4 00:57:17 56393 rosuvasta tin calcium medicatio n other Not available Not available 11/28/2023 75263 8 RxNorm React ion: unkno wn, unspe cifie d;; Not Available [facility] 4 00:57:18 12780 atorvasta tin medicatio n other Not available Not available 11/28/2023 16182 RxNorm React ion: unkno wn, unspe huie d;; Not Available [facility] 4 00:57:22 Medications Name Sig Start Date Stop Date Status Note LastModified by Organization Details LastModified Time levothyro xine 75 mcg tablet 05/22 completed Medicatio n ID: [id number] Dur ation Value: 90 Brand Name: levothyro [...] spray,lazaro pension 05/22 completed Medicatio n ID: [id number] Dur ation Value: 90 Brand Name: fluticaso ne propionat e Send Method: E-Prescri bed Subs Allowed: subs OK Specia l Instructi on: SPRAY ONE SPRAY IN EACH NOSTRIL ONCE DAILY Med icationGe nericName : fluticaso ne propionat e Not Available Not Available Not Available Livalo 2 mg tablet 09/02 completed Medicatio n ID: [id number] Dur ation Value: 90 Reason: () Brand Name: Livalo Se nd Method: E-Prescri bed Subs Allowed: subs OK Medica tionGener icName: Livalo Not Available Not Available Not Available Vitals Date Recorded Body height Body mass index (BMI) Body weight Provider Name and Address Organization Details Last Updated DateTime 03/12/2025 165.1 cm 22.5 kg/m2 13515.97 g Sommer Domínguez [place] - [facility] 03/12/2025 10:43:29 Date Recorded Body height Body mass index (BMI) Body weight Provider Name and Address Organization Details Last Updated DateTime 04/25/2024 165.1 cm 22.5 kg/m2 08416.97 g Sommer Domínguez [place] - [facility] 04/25/2024 10:09:30 Social History None recorded. Functional Status None recorded. Mental Status None recorded. Family History Nothing Reported. Medical History No medical history recorded. Gynecological HistoryNo gynecological history recorded. Obstetrics History GPAL:G 0 P 0 0 0 0 Past Encounters Encounter ID Performer Location Encounter Start Date Encounter Closed Date Diagnosis/Indication Diagnosis SNOMED-CT Code Diagnosis ICD10 Code Diagnosis IMO Codes Diagnosis Note [id number] YONI FERNANDO PA-C [facility] [place] [address] [place] [address] 04/25/2024 09:49:16 04/25/2024 10:28:10 Impacted cerumen of bilateral ears 4588737361 348704 H61.23 [id number] Efraín Velasquez DO [facility] [address] [address] 03/12/2025 10:07:37 03/12/2025 11:18:30 Sensorineural hearing loss of bilateral ears 940246900 H90.3 34932299 Impacted c erumen of bilateral ears 6786494510 844094 H61.23 834507 Health Concerns Section Related Observation LastModified by Organization Detai ls LastModified Time None Recorded Concern Status LastModified by Organization Details LastModified Time None Recorded Advance Directives Directive None Recorded Payers Insurance Date Sequence Insurance Name Policy Number Policy Barry Covered Member ID Barry Member ID Guarantor Name 03/23/2025 1 [facility] [id number] Nikki Gaines [id number] Nikki Gaines Notes Date Note Type Note Provider Name and Address Organization Details Recorded Time 04/25/2024 text/html ROS as noted in the HPI 68 year old female presents today for cerumen removal.Her right ear has been feeling blocked. THALIA AMANDA MD [address] [place] [address], [phone], [facility] - [facility] 04/25/2024 13:46:46 03/12/2025 text/html ROS as noted in the HPI The patient presents today for cerumen removal. They Endorse aural fullness. They Endorse otaliga AU. They Endorse hearing loss AU. They deny symptoms of vertigo, autophony, and tinnitus. She comes 6 months - 1 year for cleaing Prior Audiogram: None on file Efraín Velasquez, DO [address] [facility], [place], [address], [facility] - [facility] 03/12/2025 11:15:13 OBGyn Episode No OBEpisode recorded.
== END 2025-07-08 13:37 | disposition home or self-care (01) ==
LOC: HO.HMCH 12:23
PROVIDERS: PCP Internal Medicine; Visit Provider Internal Medicine
DX: Z00.00 Encounter for general adult medical examination without abnormal findings (principal); R55 Syncope and collapse; E78.00 Pure hypercholesterolemia, unspecified; E03.9 Hypothyroidism, unspecified; M81.0 Age-related osteoporosis without current pathological fracture; M51.360 Other intervertebral disc degeneration, lumbar region with discogenic back pain only

== ENCOUNTER → 2025-07-08 12:22 | Outpatient (BNVA) | payer OTHER, SELFPAY | PROVIDERS: PCP Internal Medicine; Visit Provider Internal Medicine | DX: Z13.31 Encounter for screening for depression (principal); Z13.39 Encounter for screening examination for other mental health and behavioral disorders | CPT/HCPCS: 96127 ==

== ENCOUNTER 2025-07-08 17:51 | Emergency (ER) | payer OTHER, SELFPAY ==
--- NOTE | ~2025-07-08 | CT_ITS ---
CLINICAL HISTORY: Dizziness and fall CT cervical spine without contrast Comparison: None Findings: Normal limited view of the intracranial contents. Soft tissues of the neck are normal. Lung apices are normal. Normal vertebral body alignment. No fractures or dislocations. Degenerative changes are present, most significant at C5-6 level. Impression: 1. No cervical vertebral fracture or traumatic malalignment. This document has been electronically signed by: Otis Carlton MD on 07/08/2025 19:40:42
--- NOTE | ~2025-07-08 | CT_ITS ---
CLINICAL HISTORY: dizziness and fall CT head without contrast Comparison: None Findings: No intracranial mass, midline shift, hydrocephalus, or acute hemorrhage. No CT evidence of acute ischemia. Visualized paranasal sinuses and mastoid air cells normal. Orbits unremarkable. No skull fracture Impression: 1. No acute intracranial abnormalities. This document has been electronically signed by: Otis Carlton MD on 07/08/2025 19:41:26
[2025-07-08 18:04] VITALS: BP 155/92; PULSE 98; RESP 20; TEMP 36.8; O2SAT 97; BMI 22.8
--- NOTE | 2025-07-08 18:05 | ECG_ITS ---
Test Reason : syncope Blood Pressure : */* mmHG Vent. Rate : 83 BPM Atrial Rate : 83 BPM P-R Int : 128 ms QRS Dur : 82 ms QT Int : 384 ms P-R-T Axes : 68 83 69 degrees QTcB Int : 451 ms Normal sinus rhythm Possible Left atrial enlargement Borderline ECG No previous ECGs available Referred By: Jeremías Washington Electronically Signed By: FREDIS NAZARIO MD
--- NOTE | 2025-07-08 18:07 | ED.GENADULT ---
HPI - General Adult General Chief complaint: Syncope Stated complaint: Dizziness/Syncope this AM Time Seen by Provider: 07/08/25 19:36 Source: patient and old records reviewed Mode of arrival: ambulatory Limitations: no limitations History of Present Illness ED Provider: HODAN PERRY narrative: 69-year-old female with past medical history of hypothyroidism, hyperlipidemia, osteoporosis who presents with waking up this morning feeling like she was spinning and off-balance. She denies any recent head trauma or neck manipulation or whiplash injuries. She states she feels like her sinuses are congested. She has no chest pain, trouble breathing, numbness, weakness. She has no recent fevers. She denies any GI bleed symptoms. She states she tried to use the bathroom after this episode and became more dizzy but she wanted to wash her hands. She walked into the hallway and has syncopal event. She does not remember any preceding symptoms and her states she was out for a couple of minutes. No seizure activity reported. She had her annual point with the PCP today who told her that her EKG looked off they did order Holter monitor, echo. She has no history of arrhythmia. She states she feels fine now. complaint: Dizziness, syncope Onset (ago): day(s) (This morning) Location: head Radiation: non-radiation Severity: mild Quality: dull Pain Consistency: constant Relieving factors: none Exacerbating factors: movement Associated symptoms: denies other symptoms Treatments prior to arrival: none Related Data Home Medications ?Medication ?Instructions ?Recorded ?Confirmed ascorbate calcium (vitamin C) 500 500 mg PO DAILY 03/10/22 07/08/25 mg tablet cholecalciferol (vitamin D3) 25 25 mcg PO DAILY 03/10/22 07/08/25 mcg (1,000 unit) capsule Previous Rx's ?Medication ?Instructions ?Recorded levothyroxine 88 mcg tablet 88 mcg PO DAILY #90 tabs 02/26/25 Allergies Allergy/AdvReac Type Severity Reaction Status Date / Time pitavastatin (Livalo) Allergy Intermediate myalgia/wea Verified 07/08/25 18:08 kness Sulfa (Sulfonamide Allergy Intermediate hives Verified 07/08/25 18:08 Antibiotics) sulfamethoxazole (From Allergy Intermediate Itching Verified 07/08/25 18:08 Bactrim) trimethoprim (From Bactrim) Allergy Intermediate Itching Verified 07/08/25 18:08 colesevelam AdvReac Severe myalgia/wea Verified 07/08/25 18:08 kness ezetimibe (Zetia) AdvReac Intermediate myalgia, Verified 07/08/25 18:08 weakness Uapzqpd-KXZ-SdD Reductase AdvReac Intermediate myalgia/wea Verified 07/08/25 18:08 Inhibitor kness Review of Systems Review of Systems: Yes all other systems are reviewed and are negative [facility] Past Medical History Attestation statement: The following information was validated with the patient. Source: old records reviewed Medical History Osteoporosis Lumbar degenerative disc disease Acquired hypothyroidism Pure hypercholesterolemia Surgical History H/O colonoscopy History of lumbar surgery Family History Family History Father GI problem Mother Hypothyroid Maternal Aunt Breast cancer Maternal Grandmother No problems noted. Maternal Grandfather No problems noted. Paternal Grandmother No problems noted. Paternal Grandfather No problems noted. 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 Cognitive needs: No Hearing needs: No Vision needs: Yes (reading glasses) Physical Exam ED Vital Signs: Vital Signs - 24 hr 07/08/25 18:04 07/08/25 20:00 07/08/25 20:00 Temperature 98.3 F 98.1 F Pulse Rate 98 86 86 Respiratory Rate 20 18 Blood Pressure 155/92 H 157/73 H Pulse Oximetry 97 98 Oxygen Delivery Method Room Air Room Air 07/08/25 20:00 07/08/25 20:01 07/08/25 20:45 Temperature Pulse Rate 88 94 Respiratory Rate Blood Pressure 150/73 H 161/78 H Pulse Oximetry 98 Oxygen Delivery Method Room Air 07/08/25 21:54 Temperature 0 F L Pulse Rate 0 L Respiratory Rate 0 L Blood Pressure 0/0 L Pulse Oximetry 98 Oxygen Delivery Method Room Air BMI result Body Mass Index 22.8 Appearance: Alert. Oriented X3. No acute distress. Eyes: Pupils equal, round and reactive to light. ENT: Pharynx normal. Atraumatic Neck: Normal inspection. Neck supple. CVS: Normal heart rate and rhythm. Pulses normal. Respiratory: No respiratory distress. Breath sounds normal. Abdomen: Soft and nontender. Skin: Skin warm and dry. Normal skin color. Normal skin turgor. Extremities: No lower extremity edema. No calf ttp Neuro: Oriented X 3. No motor deficit. No sensory deficit. CN2-12 intact Course Course Course Narrative: RME: 69 yold female presents to the ED for dizziness and than syncopizing which led to her falling unto the carpet floor at her house. Patient states this occurred this morning. Patient is not in distress. NIH score 0. labs, EkG, and head cT scan ordered Medications Administered Discontinued Medications Generic Name Dose Route Start Last Admin Trade Name Freq PRN Reason Stop Dose Admin Lactated Ringer's 1,000 mls @ 999 mls/hr 07/08/25 19:36 07/08/25 20:44 Lr IV 07/08/25 20:36 Infused .Q1H1M ONE Infusion Medical Decision Making Medical Decision Making [facility] Narrative: 69-year-old female with past medical history of hypothyroidism, hyperlipidemia, osteoporosis who presents with complaint of waking up dizzy though she has no other neuro findings. She has no neck pain. She has no risk factors for dissection. At this time I am going to obtain basic labs keep her on tele, repeat troponin, D-dimer, orthostatic vital signs. She did have a prodrome she felt dizzy and continued to walk to try to wash her hands then passed out during that episode. She did not report any preceding chest pain or shortness of breath. Her syncope score is IS 0 BASED OFF LACK OF PRODROME. At this time pending workup and feeling better she has adequate outpatient follow up. She has no history of arrhythmia or family history of arrhythmia that she is aware of. Differential Diagnosis Differential Diagnoses: The differential diagnosis associated with the presentation includes Syncope, orthostatic hypotension, dehydration, ANKITA, arrhythmia, low probability of PE Admission/Observation Consideration of admission/observation: Escalation of care including admission/observation considered Repeat troponins normal there is no ischemia on EKG she has a negative D-dimer She is walking normally she has no symptoms here she has negative orthostatics Lab Data MDM Lab Attestation statement: I reviewed the patient's lab results. 07/08/25 18:26 07/08/25 18:26 Labs: Lab Results 07/08/25 07/08/25 Range/Units 18:26 20:42 WBC 7.2 (4.8-10.8) X10*3/uL RBC 4.68 (4.20-5.50) X10*6/uL Hgb 14.0 (12.0-16.0) g/dl Hct 40.8 (37.0-47.0) % MCV 87.2 (80.0-98.0) fL MCH 29.9 (27.0-33.0) pg MCHC 34.3 (31.0-35.0) g/dl RDW 13.2 (11.0-16.0) % Plt Count 240 (160-400) X10*3/uL MPV 9.1 L (9.4-12.3) fL Immature Gran % (Auto) 0.1 (0.0-0.4) % Neut % (Auto) 70.6 (45-73) % Lymph % (Auto) 21.5 (20-40) % Huntington % (Auto) 6.8 (2-11) % Eos % (Auto) 0.4 (0-4) % Baso % (Auto) 0.6 (0-2) % Lymph # (Auto) 1.6 (1.2-4.9) X10*3/uL [place] # (Auto) 0.5 (0.1-1.2) X10*3/uL Eos # (Auto) 0.0 (0.0-0.4) X10*3/uL Baso # (Auto) 0.0 (0.0-0.2) X10*3/uL Abs Immat Gran (auto) 0.01 (0.00-0.03) X10*3/uL Absolute Neuts (auto) 5.1 (2.0-8.3) x10*3/uL Absolute Nucleated RBC 0.000 (0.0-0.012) X10*3/uL Nucleated RBC % (auto) 0.0 (0.0-0.2) /100WBC D-Dimer High Sensitivty < 150 NG/ML Sodium 139 (135-145) mmol/L Potassium 4.2 (3.3-5.1) mmol/L Chloride 106 (96-108) mmol/L Carbon Dioxide 24 (22-29) mmol/L Anion Gap 13 (12-20) BUN 13 (9-16) mg/dL Creatinine 0.70 (0.5-1.4) mg/dL Estim Creat Clear Calc 68.2 Estimated GFR > 60 Random Glucose 111 (60-115) mg/dL Calcium 9.3 (8.4-10.2) mg/dL Total Bilirubin 0.5 (0.0-1.0) mg/dL AST 21 (5-31) U/L ALT 19 (0-31) U/L Alkaline Phosphatase 82 (39-117) U/L Troponin I High Sens < 2.7 < 2.7 (<3.5-17.0) ng/L Total Protein 7.1 (6.5-8.0) g/dL Albumin 4.6 (3.5-5.0) g/dL Independent Interpretation I performed an independent interpretation of an: EKG and CT Scan (No acute trauma) Interpretation: Rate: 83 Rhythm: Normal sinus rhythm [place]: Normal Normal P waves. Normal JAYASHREE. Normal QRS complex. ST T wave : Inverted T-waves V1 V2 qTC: 451 prior studies: No acute ischemia but no prior EKG The study has been interpreted contemporaneously by me. . Radiology Impression Discussion of test interpretation with radiology: I have reviewed the radiologist's reading. Independent Historian Clinical information obtained from an independent historian. History obtained from or confirmed by: Spouse External Record Review External record reviewed: Outpatient record Discharge Plan Discharge Clinical Impression: Syncope Qualifiers: Syncope type: unspecified Qualified Code(s): R55 - Syncope and collapse Patient Disposition: Home, Self-Care Instructions: Syncope (ED) Additional Instructions: At this time there is no acute ischemia on her EKG Your labs are reassuring as well as repeat test for heart attack as well as negative blood clot test Your blood pressure and heart rate did not change with lying to standing At this time I need you to rest and stay hydrated I do not want you to over exert yourself I will need to follow up with your primary care doctor including the Holter monitor, echo Return for any worsening symptoms or concerns You should not be doing any strenuous activity until you are seen by your primary care Prescriptions: No Action levothyroxine 88 mcg tablet 88 mcg PO DAILY Qty: 90 3RF Rx Instructions: STOP levothyroxine 100mcg ascorbate calcium (vitamin C) 500 mg tablet 500 mg PO DAILY cholecalciferol (vitamin D3) 25 mcg (1,000 unit) capsule 25 mcg PO DAILY Interventions: ED Discharge Assessment Last Done: 07/08/25 21:54 Discharge Date/Time: 07/08/25 21:55 Print Language: [place] Citizen
[2025-07-08 18:31] LABS: MANUAL DIFF FLAG NO
[2025-07-08 18:35] LABS: Hematocrit 40.8 % (37.0-47.0); Hemoglobin 14.0 g/dl (12.0-16.0); Imm Gran Abs Auto 0.01 X10*3/uL (0.00-0.03); Imm Gran Pct Auto 0.1 % (0.0-0.4); Lymphocytes Absolute Auto 1.6 X10*3/uL (1.2-4.9); Mean Corpuscular HGB Conc 34.3 g/dl (31.0-35.0); Mean Corpuscular Hemoglobin 29.9 pg (27.0-33.0); Mean Corpuscular Volume 87.2 fL (80.0-98.0); NRBC Abs Auto 0.000 X10*3/uL (0.0-0.012); NRBC Pct Auto 0.0 /100WBC (0.0-0.2); Platelet Count 240 X10*3/uL (160-400); Red Blood Count 4.68 X10*6/uL (4.20-5.50); White Blood Count 7.2 X10*3/uL (4.8-10.8)
[2025-07-08 18:46] LABS: Alanine Aminotransferase 19 U/L (0-31); Albumin Level 4.6 g/dL (3.5-5.0); Alkaline Phosphatase 82 U/L (39-117); Anion Gap 13 (12-20); Aspartate Amino Transferase 21 U/L (5-31); Blood Urea Nitrogen 13 mg/dL (9-16); Calcium 9.3 mg/dL (8.4-10.2); Carbon Dioxide 24 mmol/L (22-29); Chloride 106 mmol/L (96-108); Creatinine Clr Calc Pharmacy 68.2; Estimated Glomerular Filt Rate > 60; Potassium 4.2 mmol/L (3.3-5.1); Sodium 139 mmol/L (135-145); Total Protein 7.1 g/dL (6.5-8.0)
[2025-07-08 19:01] LABS: Troponin-I High Sensitivity < 2.7 ng/L (<3.5-17.0)
[2025-07-08 20:00] VITALS: BP 150/73; BP 157/73; PULSE 86; PULSE 88; RESP 18; TEMP 36.7; O2SAT 98
[2025-07-08 20:01] VITALS: BP 161/78; PULSE 94
[2025-07-08] MEDS: Lactated Ringers 1,000 ML 999 ML IV (20:05)
[2025-07-08 20:45] VITALS: O2SAT 98
[2025-07-08 20:58] LABS: D Dimer High Sensitivity < 150 NG/ML
[2025-07-08 21:12] LABS: Troponin-I High Sensitivity < 2.7 ng/L (<3.5-17.0)
[2025-07-08 21:54] VITALS: BP 0/0; PULSE 0; RESP 0; TEMP -17.7; TEMP 0; O2SAT 98
== END 2025-07-08 21:55 | disposition home or self-care (01) ==
PROVIDERS: Physician Assistant; Emergency Provider Emergency Medicine; PCP Internal Medicine
DX: R55 Syncope and collapse (principal); R42 Dizziness and giddiness; E78.5 Hyperlipidemia, unspecified; R94.31 Abnormal electrocardiogram [ECG] [EKG]; Z91.81 History of falling
CPT/HCPCS: 36415; 70450; 72125; 80053; 84484; 85025; 85379; 93005; 99284; 99285; J7120

== ENCOUNTER → 2025-07-08 18:05 | Outpatient (BNV) | payer OTHER, SELFPAY | PROVIDERS: Emergency Provider Emergency Medicine; PCP Internal Medicine; Visit Provider Internal Medicine Cardiovascular Disease | DX: R55 Syncope and collapse (principal) | CPT/HCPCS: 93010 ==

== ENCOUNTER → 2025-07-08 18:06 | Outpatient (BNV) | payer OTHER, SELFPAY | PROVIDERS: Emergency Provider Emergency Medicine; PCP Internal Medicine; Visit Provider Radiology Diagnostic Radiology | DX: R42 Dizziness and giddiness (principal); Z04.3 Encounter for examination and observation following other accident | CPT/HCPCS: 70450; 72125 ==

== ENCOUNTER → 2025-07-15 09:46 | Outpatient (REF) | payer OTHER, SELFPAY ==
--- NOTE | 2025-07-15 09:50 | CA_ITS ---
Transthoracic Echocardiogram Patient (Last, First, Middle): Nikki Gaines J Gender: Female Date of : 1955 Age: 69 Procedure Date: 07/15/2025 Procedure Type: Transthoracic Echocardiogram Location: OP Height: 165.1 cm Weight: 61.69 kg BSA: 1.68 m2 Heart Rate: 75 bpm BP: 161 / 78 mmHg House Officer: SB Referring MD: Seven Jansen MD Symptoms: R55 - Syncope and collapse Study Quality: Adequate ECG Rhythm: Sinus Conclusions: - The left ventricular systolic function is normal. The calculated ejection fraction is 66% by biplane method. - No obvious valvular pathology seen on this study. Findings Left Ventricle Normal left ventricular cavity size. There is normal left ventricular wall thickness. The left ventricular systolic function is normal. The calculated ejection fraction is 66% by biplane method. There is no evidence of regional wall motion abnormalities. Diastolic function is normal for age. Right Ventricle Normal right ventricular cavity size and systolic function. Atria Both atria are normal in size. Aortic Valve There is a normal trileaflet aortic valve. There is no aortic valve stenosis. There is no aortic valve regurgitation. Mitral Valve The mitral valve appears normal. There is trace mitral valve regurgitation. There is no mitral valve stenosis. Pulmonic Valve The pulmonic valve is likely normal. Tricuspid Valve Normal tricuspid valve structure. There is trace tricuspid valve regurgitation. There is no evidence of pulmonary hypertension. Great Vessels The asc aorta is normal in size. Venous The inferior vena cava is normal in size and collapses greater than 50% with inspiration. Pericardium/Pleural There is no evidence of pericardial effusion. Prior Study Comparison No prior study available for comparison. Recommendations, Care & Conclusions No obvious valvular pathology seen on this study. Measurements 2D Linear Measurements IVSd: 0.78 0.6-0.9/0.6-1.0 cm LVIDd: 4.36 3.9-5.3/4.2-5.9 cm LVIDd Index: 2.60 2.4-3.2/2.2-3.1 cm/m2 LVIDs: 2.23 2.0-3.6 cm LVPWd: 0.81 0.7-1.1 cm LA Diam: 3.50 2.7-3.8/3.0-4.0 cm LAIDs Index: 2.08 1.5-2.3 cm/m2 LV Mass: 132.21 67-162/88-224 g LV Mass Index: 78.70 43-95/49-115 g/m2 LVOT Diam: 2.00 3.0+(-)1.3 cm 2D Systolic Function EF 4C: 63.30 >55% EF 2C: 69.10 >55% EF BiP: 66.40 >55% Mitral Valve MV Pk E: 1.02 MV PK A: 0.99 MV Decel Time: 193.00 E/A: 1.00 E'Lateral: 9.14 E'Medial: 7.51 E/E' Med: 13.60 E/E' Lat: 11.20 PHT: 57.00 MVA PHT: 3.86 Decel Travis: 5.30 Aortic Valve AoV Pk Arie: 1.33 AoV Pk Grad: 7.00 MILLY: 2.64 LVOT LVOT Pk Arie: 1.12 LVOT Mn Arie: 0.75 LVOT VTI: 0.22 LVOT Pk Grad: 5.00 LVOT Mn Grad: 3.00 LVOT Diam: 2.00 LVOT Area: 3.14 Diastolic Function MV Pk E: 1.02 MV Pk A: 0.99 E/A: 1.00 E'Medial: 7.51 E/E' Med: 13.60 E' Laterial: 9.14 E/E' Lat: 11.20 Right Ventricle TAPSE (mm): 16.60 TVS' Arie: 14.30 Tricuspid Valve TR Pk Arie: 2.40 TR Pk Grad: 23.00 RA Press: 3.00 RVSP: 26.00 Great Vessels Aorta Sinus of Valsalva: 2.80 2.0-3.5 cm Ao Asc: 2.50 2.1-3.4 cm Pulmonary Veins Pulm Vein S/D 1.60 Pulmonary Valve PV Pk Arie: 0.94 Peak PV Grad: 3.00 Updated in Other Vendor System with Status of Final Andrea Nj MD electronically signed on 07/17/2025 11:31:08 AM with status of Final
--- OUTSIDE RECORDS SUMMARY | 2025-07-15 12:37 | XMS_ITS | Patient Health Record ---
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 Problems Problem Type SNOMED Code ICD Code Onset Dates Problem Status W/U Status Risk Notes Problem Colon cancer screening (119704299) Colon cancer screening (Z12.11) Active confirmed Problem Diverticular disease of colon (264308474) Diverticulosis of large intestine without perforation or abscess without bleeding (K57.30) Active confirmed Problem Preprocedural examination (548744952511639) Preprocedural examination (Z01.818) Active confirmed Plan Of Treatment Future Test Test Name Order Date COLONOSCOPY 03/08/2023 Insurance Providers Payer Name Payer Address Payer Phone Subscriber Number Group Number Insured Name Patient Relationship to Insured Coverage Start Date Coverage End Date [facility] [address] [place] [address] [phone] [id number] DANGELO ESCUDERO Self - patient is the insured Medical (General) History Medical History History ICD Code Denies [place],DM,CVA,Lung disease,renal dise ase Hypercholesterolemia Hypothyroidism Osteopenia/osteoporosis Screening colonoscopy in 04/2011 with on ly hyperplastic polyps Surgical History Surgery Date(Month/Year) Lumbar disc surgery
== END ==
LOC: HO.CARD 09:46
PROVIDERS: PCP Internal Medicine; Visit Provider Internal Medicine
DX: R55 Syncope and collapse (principal)
CPT/HCPCS: 93242; 93306

== ENCOUNTER → 2025-07-15 09:50 | Outpatient (BNV) | payer OTHER, SELFPAY | PROVIDERS: PCP Internal Medicine; Visit Provider Internal Medicine | DX: R55 Syncope and collapse (principal) | CPT/HCPCS: 93306 ==